=== PATIENT | female | born 1975 | race Hispanic/Latino ===

== ENCOUNTER 2019-02-06 16:24 | Emergency (ER) | payer SELFPAY | END 2019-02-06 17:00 | disposition left against medical advice (07) | LOC: ED 16:24 | DX: F41.9 Anxiety disorder, unspecified (principal); Z53.21 Procedure and treatment not carried out due to patient leaving prior to being seen by health care provider ==

== ENCOUNTER 2019-04-03 10:57 | Inpatient (IN) | payer OTHER ==
[2019-04-03] MEDS ORDERED: SODIUM CHLORIDE 0.9% 1000 ML 1,000 ML IV ONE ×4 (11:07→22:32)
[2019-04-03] MEDS ORDERED: cefTRIAXone/NS 2 GM/100 ML 2 GM/100 ML BAG IV SCH (11:10)
[2019-04-03 11:46] LABS: Hemoglobin 16.8 gm/dl (11.8-15.2); Mean Corpuscular HGB Conc 35 % (32-34); Mean Corpuscular Volume 81 fl (84-94); Platelet Count 117 K/mm3 (140-440); Red Cell Distribution Width 14.7 % (13.2-15.2)
[2019-04-03 11:50] LABS: Amphetamine Screen,Urine PRESUMPTIVE NEGATIVE; Benzodiazepines Screen,Urine PRESUMPTIVE NEGATIVE; Cannabinoid Screen,Urine PRESUMPTIVE NEGATIVE; Cocaine Screen,Urine PRESUMPTIVE NEGATIVE; Methadone Screen,Urine PRESUMPTIVE NEGATIVE; Opiate Screen,Urine PRESUMPTIVE NEGATIVE
[2019-04-03 11:52] LABS: Bacteria,Urine 1+ /HPF (Negative); Bilirubin,Urine MOD (Negative); Blood,Urine NEG (Negative); Color,Urine Amber (Yellow); Hyaline Casts,Urine 9 /LPF; Mucus,Urine 3+ /HPF
[2019-04-03 12:06] LABS: Alanine Aminotransferase 28 units/L (7-56); Albumin 3.7 g/dL (3.9-5); BUN/Creatinine Ratio 20; Blood Urea Nitrogen 53 mg/dL (9-20); Calcium 9.6 mg/dL (8.4-10.2); Hemolysis Index 6
[2019-04-03 12:10] LABS: Ictotest,Urine Positive (Negative)
--- NOTE | 2019-04-03 12:10 | XRay Report ---
CHEST 1 VIEW INDICATION: altered mental status. COMPARISON: None. FINDINGS: Support devices: None. Heart: Within normal limits. Lungs/Pleura: No acute air space or interstitial disease. Additional findings: None. IMPRESSION: 1. No acute findings. Signer Name: Wilmer Moon MD Signed: 04/03/2019 12:06 PM Workstation Name: [id number]
[2019-04-03 12:23] LABS: Basophils % (Manual) 0 % (0.0-1.8); Platelet Estimate Consistent w Auto; RBC Morphology Normal; Total Cells Counted 100
--- NOTE | 2019-04-03 14:24 | Cat Scan Report ---
CT head/brain wo con INDICATION: altered mental status. TECHNIQUE: Routine CT head without contrast. All CT scans at this location are performed using CT dos e reduction for ALARA by means of automated exposure control. COMPARISON: None. FINDINGS: BRAIN / INTRACRANIAL CONTENTS: No acute hemorrhage, mass effect, midline shift, or hydrocephalus. No appreciable acute large territorial or lacunar infarct. ORBITS: No significant abnormality of visualized orbits. SINUSES / MASTOIDS: No significant abnormality of visualized sinuses and mastoid air cells. ADDITIONAL FINDINGS: None. IMPRESSION: 1. No acute intracranial abnormality. Signer Name: Priyank Easley MD Signed: 04/03/2019 2:20 PM Workstation Name: [id number]
--- NOTE | 2019-04-03 14:35 | Cat Scan Report ---
CT abdomen pelvis wo con INDICATION: elevated bilirubin. TECHNIQUE: All CT scans at this location are performed using the following dose modulation technique: Automated exposure control. CONTRAST: None. COMPARISON: None available. CT ABDOMEN: The parenchymal organs are unremarkable in appearance. Evaluation of bowel demonstrates f luid-filled stomach, small bowel in: To a lesser degree. Negative for wall thickening or transition z one. No abdominal mass, fluid collection or localized inflammation. CT PELVIS: Negative for mass, fluid or inflammation. The bladder is decompressed by Lopez catheter. IMPRESSION: Suspect a gastroenteritis-type process. Signer Name: Colby Marc MD Signed: 04/03/2019 2:31 PM Workstation Name: [id number]
[2019-04-03] MEDS ORDERED: LIDOCAINE (2%) 20 MG/1 ML VIAL 20 ML MDV INFILTRATI ONE (14:53)
--- NOTE | 2019-04-03 15:33 | Emergency Department Report ---
ED General Adult HPI - General Chief complaint: Altered Mental Status Stated complaint: BERTA Time Seen by Provider: 04/03/19 11:05 Source: EMS Mode of arrival: Stretcher Limitations: Altered Mental Status, Other - History of Present Illness Initial comments: Patient is a 44-year-old male who is presenting with altered mental status. Patient is a prisoner and was found on his cell poorly responsive. Patient was transported and given Narcan prior to arrival with no effect. Patient showing this minimal response to sternal rub where he does localize to pain otherwise the patient is just moaning and was not responding to any verbal stimuli. Patient was hypotensive and hypothermic prior to arrival. No known medical problems have been relayed to us Severity scale (0 -10): 0 - Related Data Allergies Allergy/AdvReac Type Severity Reaction Status Date / Time diphenhydramine Allergy Unknown Verified 02/06/19 16:32 [From Benadryl] lithium Allergy Unknown Verified 02/06/19 16:33 Sulfa (Sulfonamide Allergy Nausea Verified 02/06/19 16:32 Antibiotics) ED Review of Systems ROS: Stated complaint: BERTA Other details as noted in HPI Comment: All other systems reviewed and negative ED Past Medical Hx - Past Medical History Previous Medical History?: Yes Hx Psychiatric Treatment: Yes - Surgical History Past Surgical History?: No - Social History Smoking Status: Current Every Day Smoker Substance Use Type: None ED Physical Exam - General Limitations: Altered Mental Status, Other General appearance: obtunded - Head Head exam: Present: atraumatic, normocephalic - Eye Eye exam: Present: normal appearance, PERRL, EOMI - ENT ENT exam: Present: mucous membranes moist - Neck Neck exam: Present: normal inspection - Respiratory Respiratory exam: Present: normal lung sounds bilaterally. Absent: respiratory distress, wheezes, rales, rhonchi - Cardiovascular Cardiovascular Exam: Present: regular rate, normal rhythm. Absent: systolic murmur, diastolic murmur, rubs, gallop - GI/Abdominal GI/Abdominal exam: Present: soft, normal bowel sounds, other (Bruising to the right abdomen which is mild). Absent: distended, tenderness, guarding, rebound - Rectal Rectal exam: Present: deferred - Extremities Exam Extremities exam: Present: normal inspection - Back Exam Back exam: Present: normal inspection - Neurological Exam Neurological exam: Present: altered, other (Patient is moving all extremities but is not responding to command) - Skin Skin exam: Present: warm, dry, intact, normal color. Absent: rash ED Course Vital Signs 04/03/19 04/03/19 04/03/19 11:12 11:16 11:30 Temperature Pulse Rate 83 78 Respiratory 34 H 27 H Rate Blood Pressure 91/40 91/40 65/37 Blood Pressure [Left] O2 Sat by Pulse 95 97 96 Oximetry 04/03/19 04/03/19 04/03/19 11:31 11:38 11:46 Temperature 91 F L Pulse Rate 88 72 80 Respiratory 20 25 H 29 H Rate Blood Pressure 91/40 108/83 Blood Pressure 108/83 [Left] O2 Sat by Pulse 97 95 92 Oximetry 04/03/19 04/03/19 04/03/19 12:00 12:16 12:30 Temperature Pulse Rate 78 77 83 Respiratory 24 26 H 28 H Rate Blood Pressure 96/78 115/33 47/19 Blood Pressure [Left] O2 Sat by Pulse 99 100 98 Oximetry 04/03/19 04/03/19 04/03/19 12:46 13:00 13:16 Temperature Pulse Rate 82 80 87 Respiratory 25 H 23 28 H Rate Blood Pressure 102/57 93/58 75/46 Blood Pressure [Left] O2 Sat by Pulse 99 98 96 Oximetry 04/03/19 04/03/19 04/03/19 13:55 14:00 14:16 Temperature Pulse Rate 87 82 90 Respiratory 18 22 20 Rate Blood Pressure 79/50 79/50 67/40 Blood Pressure [Left] O2 Sat by Pulse 97 97 96 Oximetry 04/03/19 04/03/19 04/03/19 14:30 14:45 15:00 Temperature Pulse Rate 85 85 83 Respiratory 20 20 35 H Rate Blood Pressure 84/46 90/51 90/51 Blood Pressure [Left] O2 Sat by Pulse 98 98 97 Oximetry 04/03/19 15:16 Temperature Pulse Rate 84 Respiratory 18 Rate Blood Pressure 60/37 Blood Pressure [Left] O2 Sat by Pulse 96 Oximetry ED Medical Decision Making - Lab Data Result diagrams: 04/03/19 11:22 04/03/19 11:22 Lab Results 04/03/19 04/03/19 04/03/19 Range/Units 11:09 11:09 11:22 WBC 8.0 (4.5-11.0) K/mm3 RBC 5.90 H (3.65-5.03) M/mm3 Hgb 16.8 H (11.8-15.2) gm/dl Hct 48.0 H (35.5-45.6) % MCV 81 L (84-94) fl MCH 28 (28-32) pg MCHC 35 H (32-34) % RDW 14.7 (13.2-15.2) % Plt Count 117 L (140-440) K/mm3 Add Manual Diff Complete Total Counted 100 Seg Neuts % (Manual) 7.0 L (40.0-70.0) % Band Neutrophils % 75.0 % Lymphocytes % (Manual) 14.0 (13.4-35.0) % Reactive Lymphs % (Man) 0 % Monocytes % (Manual) 3.0 (0.0-7.3) % Eosinophils % (Manual) 1.0 (0.0-4.3) % Basophils % (Manual) 0 (0.0-1.8) % Metamyelocytes % 0 % Myelocytes % 0 % Promyelocytes % 0 % Blast Cells % 0 % Nucleated RBC % Not Reportable Seg Neutrophils # Man 0.6 L (1.8-7.7) K/mm3 Band Neutrophils # 6.0 K/mm3 Lymphocytes # (Manual) 1.1 L (1.2-5.4) K/mm3 Abs React Lymphs (Man) 0.0 K/mm3 Monocytes # (Manual) 0.2 (0.0-0.8) K/mm3 Eosinophils # (Manual) 0.1 (0.0-0.4) K/mm3 Basophils # (Manual) 0.0 (0.0-0.1) K/mm3 Metamyelocytes # 0.0 K/mm3 Myelocytes # 0.0 K/mm3 Promyelocytes # 0.0 K/mm3 Blast Cells # 0.0 K/mm3 WBC Morphology Not Reportable Hypersegmented Neuts Not Reportable Hyposegmented Neuts Not Reportable Hypogranular Neuts Not Reportable Smudge Cells Not Reportable Toxic Granulation Not Reportable Toxic Vacuolation Not Reportable Dohle Bodies Not Reportable Pelger-Huet Anomaly Not Reportable Shayy Rods Not Reportable Platelet Estimate Consistent w auto Clumped Platelets Not Reportable Plt Clumps, EDTA Not Reportable Large Platelets Not Reportable Giant Platelets Not Reportable Platelet Satelliting Not Reportable Plt Morphology Comment Not Reportable RBC Morphology Normal Dimorphic RBCs Not Reportable Polychromasia Not Reportable Hypochromasia Not Reportable Poikilocytosis Not Reportable Anisocytosis Not Reportable Microcytosis Not Reportable Macrocytosis Not Reportable Spherocytes Not Reportable Pappenheimer Bodies Not Reportable Sickle Cells Not Reportable Target Cells Not Reportable Tear Drop Cells Not Reportable Ovalocytes Not Reportable Helmet Cells Not Reportable [place] Bodies Not Reportable [place] Rings Not Reportable [place] Cells Not Reportable Bite Cells Not Reportable Crenated Cell Not Reportable Elliptocytes Not Reportable Acanthocytes (Spur) Not Reportable Rouleaux Not Reportable Hemoglobin C Crystals Not Reportable Schistocytes Not Reportable Malaria parasites Not Reportable Ric Bodies Not Reportable Hem Pathologist Commnt No Sodium (137-145) mmol/L Potassium (3.6-5.0) mmol/L Chloride (98-107) mmol/L Carbon Dioxide (22-30) mmol/L Anion Gap mmol/L BUN (9-20) mg/dL Creatinine (0.8-1.5) mg/dL Estimated GFR ml/min BUN/Creatinine Ratio % Glucose (75-100) mg/dL Lactic Acid (0.7-2.0) mmol/L Calcium (8.4-10.2) mg/dL Total Bilirubin (0.1-1.2) mg/dL AST (5-40) units/L ALT (7-56) units/L Alkaline Phosphatase (35-129) units/L Total Creatine Kinase (55-170) units/L Troponin T (0.00-0.029) ng/mL Total Protein (6.3-8.2) g/dL Albumin (3.9-5) g/dL Albumin/Globulin Ratio % Urine Color [place] (Yellow) Urine Turbidity Cloudy (Clear) Urine pH 5.0 (5.0-7.0) Ur Specific [place] 1.027 (1.003-1.030) Urine Protein 30 mg/dl (Negative) mg/dL Urine Glucose (UA) Neg (Negative) mg/dL Urine Ketones Neg (Negative) mg/dL Urine Blood Neg (Negative) Urine Nitrite Neg (Negative) Ur Reducing Substances Not Reportable Urine Bilirubin Mod (Negative) Urine Ictotest Positive (Negative) Urine Urobilinogen 4.0 (<2.0) mg/dL Ur Leukocyte Esterase Neg (Negative) Urine WBC (Auto) 15.0 H (0.0-6.0) /HPF Urine RBC (Auto) 13.0 (0.0-6.0) /HPF U Epithel Cells (Auto) 1.0 (0-13.0) /HPF Urine Bacteria (Auto) 1+ (Negative) /HPF Hyaline Casts 9 /LPF Urine Mucus 3+ /HPF Urine Opiates Screen Presumptive negative Urine Methadone Screen Presumptive negative Ur Barbiturates Screen Presumptive negative Ur Phencyclidine Scrn Presumptive negative Ur Amphetamines Screen Presumptive negative U Benzodiazepines Scrn Presumptive negative Urine Cocaine Screen Presumptive negative U Marijuana (THC) Screen Presumptive negative Drugs of Abuse Note Disclamer Plasma/Serum Alcohol (0-0.07) % 04/03/19 04/03/19 04/03/19 Range/Units 11:22 11:22 11:22 WBC (4.5-11.0) K/mm3 RBC (3.65-5.03) M/mm3 Hgb (11.8-15.2) gm/dl Hct (35.5-45.6) % MCV (84-94) fl MCH (28-32) pg MCHC (32-34) % RDW (13.2-15.2) % Plt Count (140-440) K/mm3 Add Manual Diff Total Counted Seg Neuts % (Manual) (40.0-70.0) % Band Neutrophils % % Lymphocytes % (Manual) (13.4-35.0) % Reactive Lymphs % (Man) % Monocytes % (Manual) (0.0-7.3) % Eosinophils % (Manual) (0.0-4.3) % Basophils % (Manual) (0.0-1.8) % Metamyelocytes % % Myelocytes % % Promyelocytes % % Blast Cells % % Nucleated RBC % Seg Neutrophils # Man (1.8-7.7) K/mm3 Band Neutrophils # K/mm3 Lymphocytes # (Manual) (1.2-5.4) K/mm3 Abs React Lymphs (Man) K/mm3 Monocytes # (Manual) (0.0-0.8) K/mm3 Eosinophils # (Manual) (0.0-0.4) K/mm3 Basophils # (Manual) (0.0-0.1) K/mm3 Metamyelocytes # K/mm3 Myelocytes # K/mm3 Promyelocytes # K/mm3 Blast Cells # K/mm3 WBC Morphology Hypersegmented Neuts Hyposegmented Neuts Hypogranular Neuts Smudge Cells Toxic Granulation Toxic Vacuolation Dohle Bodies Pelger-Huet Anomaly Shayy Rods Platelet Estimate Clumped Platelets Plt Clumps, EDTA Large Platelets Giant Platelets Platelet Satelliting Plt Morphology Comment RBC Morphology Dimorphic RBCs Polychromasia Hypochromasia Poikilocytosis Anisocytosis Microcytosis Macrocytosis Spherocytes Pappenheimer Bodies Sickle Cells Target Cells Tear Drop Cells Ovalocytes Helmet Cells [place] Bodies [place] Rings [place] Cells Bite Cells Crenated Cell Elliptocytes Acanthocytes (Spur) Rouleaux Hemoglobin C Crystals Schistocytes Malaria parasites Ric Bodies Hem Pathologist Commnt Sodium 146 H (137-145) mmol/L Potassium 4.4 (3.6-5.0) mmol/L Chloride 100.0 (98-107) mmol/L Carbon Dioxide 15 L (22-30) mmol/L Anion Gap 35 mmol/L BUN 53 H (9-20) mg/dL Creatinine 2.7 H (0.8-1.5) mg/dL Estimated GFR 26 ml/min BUN/Creatinine Ratio 20 % Glucose 179 H (75-100) mg/dL Lactic Acid 8.00 H* (0.7-2.0) mmol/L Calcium 9.6 (8.4-10.2) mg/dL Total Bilirubin 4.00 H (0.1-1.2) mg/dL AST 17 (5-40) units/L ALT 28 (7-56) units/L Alkaline Phosphatase 102 (35-129) units/L Total Creatine Kinase 43 L (55-170) units/L Troponin T < 0.010 (0.00-0.029) ng/mL Total Protein 7.8 (6.3-8.2) g/dL Albumin 3.7 L (3.9-5) g/dL Albumin/Globulin Ratio 0.9 % Urine Color (Yellow) Urine Turbidity (Clear) Urine pH (5.0-7.0) Ur Specific [place] (1.003-1.030) Urine Protein (Negative) mg/dL Urine Glucose (UA) (Negative) mg/dL Urine Ketones (Negative) mg/dL Urine Blood (Negative) Urine Nitrite (Negative) Ur Reducing Substances Urine Bilirubin (Negative) Urine Ictotest (Negative) Urine Urobilinogen (<2.0) mg/dL Ur Leukocyte Esterase (Negative) Urine WBC (Auto) (0.0-6.0) /HPF Urine RBC (Auto) (0.0-6.0) /HPF U Epithel Cells (Auto) (0-13.0) /HPF Urine Bacteria (Auto) (Negative) /HPF Hyaline Casts /LPF Urine Mucus /HPF Urine Opiates Screen Urine Methadone Screen Ur Barbiturates Screen Ur Phencyclidine Scrn Ur Amphetamines Screen U Benzodiazepines Scrn Urine Cocaine Screen U Marijuana (THC) Screen Drugs of Abuse Note Plasma/Serum Alcohol < 0.01 (0-0.07) % - EKG Data -: EKG Interpreted by Ct - EKG Data 04/03/19 15:32 EKG shows sinus rhythm with a rate of 76. [place] is normal intervals show prolonged QT. No ST segment elevations or depressions. - Radiology Data CHEST 1 VIEW INDICATION: altered mental status. COMPARISON: None. FINDINGS: Support devices: None. Heart: Within normal limits. Lungs/Pleura: No acute air space or interstitial disease. Additional findings: None. IMPRESSION: 1. No acute findings. Signer Name: Wilmer Moon MD Signed: 04/03/2019 12:06 PM Workstation Name: [id number] CT abdomen pelvis wo con INDICATION: elevated bilirubin. TECHNIQUE: All CT scans at this location are performed using the following dose modulation technique: Automated exposure control. CONTRAST: None. COMPARISON: None available. CT ABDOMEN: The parenchymal organs are unremarkable in appearance. Evaluation of bowel demonstrates fluid-filled stomach, small bowel in: To a lesser degree. Negative for wall thi ckening or transition zone. No abdominal mass, fluid collection or localized inflammation. CT PELVIS: Negative for mass, fluid or inflammation. The bladder is decompressed by Lopez catheter. IMPRESSION: Suspect a gastroenteritis-type process. Signer Name: Colby Marc MD Signed: 04/03/2019 2:31 PM Workstation Name: [id number] Transcribed By: ES Dictated By: Colby Marc MD Electronically Authenticated By: Colby Marc MD Signed Date/Time: 04/03/[address] head/brain wo con INDICATION: altered mental status. TECHNIQUE: Routine CT head without contrast. All CT scans at this location are performed using CT dose reduction for ALARA by means of automated exposure control. COMPARISON: None. FINDINGS: BRAIN / INTRACRANIAL CONTENTS: No acute hemorrhage, mass effect, midline shift, or hydrocephalus. No appreciable acute large territorial or lacunar infarct. ORBITS: No significant abnormality of visualized orbits. SINUSES / MASTOIDS: No significant abnormality of visualized sinuses and mastoid air cells. ADDITIONAL FINDINGS: None. IMPRESSION: 1. No acute intracranial abnormality. Signer Name: Priyank Easley MD Signed: 04/03/2019 2:20 PM - Medical Decision Making Patient is a 44-year-old male who is presenting with altered mental status hypotension and hypothermia. Patient was placed on a Evans hugger no on arrival. His temperatures and is continued to be monitored and is improving. Regard to patient's mental status patient did have a intact gag reflex and is maintaining his oxygenation with nonrebreather. I have elected to not intubate the patient at this time. Patient is 100% with his O2 sat. Patient is given multiple fluid boluses to improve the patient's hypo-tension. Patient blood pressure would correct occasionally and then drop. Elected to place a I/O in the patient's left tibia. Central line was attempted in the right IJ. There was issues with passing the guidewire secondary to patient's breathing pattern. Patient will be started on levo fed after failed improvement of his blood pressure with multiple fluid boluses. Patient does not appear to have any source of infection at this time. His white count is within normal limits he is afebrile. There is no urinary tract infection or pneumonia. Patient does have evidence of renal failure with metabolic acidosis. Patient will be admitted to the hospitalist service. Was elevated bilirubin however CT of the abdomen shows only gastroenteritis type pattern. Critical Care Time: Yes (30) Critical care attestation.: If time is entered above; I have spent that time in minutes in the direct care of this critically ill patient, excluding procedure time. ED Disposition Clinical Impression: Acute encephalopathy, Hyperbilirubinemia Renal failure Qualifiers: Renal failure chronicity: acute Acute renal failure type: unspecified Qualified Code(s): N17.9 - Acute kidney failure, unspecified Hypotension Qualifiers: Hypotension type: unspecified hypotension type Qualified Code(s): I95.9 - Hypotension, unspecified Hypothermia Qualifiers: Encounter type: initial encounter Qualified Code(s): T68.XXXA - Hypothermia, initial encounter Disposition: OP ADMIT IP TO THIS HOSP Is pt being admited?: Yes Does the pt Need Aspirin: No Condition: Stable Time of Disposition: 15:39
[2019-04-03] MEDS: NORepinephrine/NS 4 MG-250 ML 4 MG/250 ML BAG IV SCH ×2 (16:07→22:20)
[2019-04-03] MEDS ORDERED: ALBUTEROL 2.5 MG/3 ML NEBU IH PRN (16:37)
[2019-04-03] MEDS ORDERED: SODIUM CHLORIDE 0.9% 1000 ML IV SOLN IV ONE (16:37)
--- NOTE | 2019-04-03 17:00 | History and Physical Report ---
History of Present Illness Chief complaint: Unresponsive History of present illness: 44 YO Male with Nicotine Dependence, Obesity, Obesity Hypoventilation presents to ED for evaluation. Patient is currently incarcerated. Patient is stuporous/comatose at time of my exam and is unable to provide history. Patient history is provided by EMS staff, ED staff, and senior living center staff. As per staff the patient was found to be unresponsive this morning. EMS was notified and upon arrival the patient was treated with Narcan upon arrival with no effect. Patient transported to [facility] for further care and evaluation. Patient seen and evaluated in the emergency department. Lab and imaging studies reviewed. Patient found to have sepsis, acute kidney injury, metabolic acidosis, and toxic encephalopathy with concomitant volume depletion. Patient admitted to intensive care unit and initiated on sepsis protocol. Patient also found to have acute hypoxemic respiratory distress and is placed on supplemental oxygen. Patient has a positive gag reflex and is able to protect his airway at this time. No other history obtainable. Patient found to be in septic shock with systolic blood pressure in the 70s and is initiated on IV pressor support with concomitant IV fluid resuscitation therapy in accordance with sepsis protocol. No further history obtainable. No prior admission for review. No medication listed at time of admission for reconciliation. Critical care time: 95 minutes. Past History Past Medical History: other (See HPI) Past Surgical History: No surgical history, Other (Unobtainable) Social history: single, smoking, other (Currently incarcerated) Family history: no significant family history (Reviewed/unobtainable) Medications and Allergies Allergies Allergy/AdvReac Type Severity Reaction Status Date / Time diphenhydramine Allergy Unknown Verified 02/06/19 16:32 [From Benadryl] lithium Allergy Unknown Verified 02/06/19 16:33 Sulfa (Sulfonamide Allergy Nausea Verified 02/06/19 16:32 Antibiotics) Active Meds: Active Medications Albuterol (Proventil) 2.5 mg IH Q3HRT PRN PRN Reason: Shortness Of Breath Ceftriaxone Sodium (Rocephin/Ns 2 Gm/100 Ml) 2 gm in 100 mls @ 200 mls/hr IV Q24HR DUSTY; Protocol Last Admin: 04/03/19 12:17 Dose: 200 mls/hr Documented by: Norepinephrine (Levophed Drip 4 Mg/Ns 250 Ml) 4 mg in 250 mls @ 7.5 mls/hr IV TITR DUSTY; Protocol Last Titration: 04/03/19 16:59 Dose: 6 mcg/min, 22.5 mls/hr Documented by: Sodium Chloride (Nacl 0.9% 1000 Ml) 1,000 mls @ 999 mls/hr IV BOLUS ONE Stop: 04/03/19 17:12 Last Admin: 04/03/19 16:36 Dose: 999 mls/hr Documented by: Sodium Chloride (Sodium Chloride Flush Syringe 10 Ml) 10 ml IV BID DUSTY Sodium Chloride (Sodium Chloride Flush Syringe 10 Ml) 10 ml IV PRN PRN PRN Reason: LINE FLUSH Review of Systems ROS unobtainable: due to mental status Exam - Constitutional Vitals: Temp Pulse Resp BP Pulse Ox 91 F L 84 18 60/37 96 04/03/19 11:31 04/03/19 15:16 04/03/19 15:16 04/03/19 15:16 04/03/19 15:16 General appearance: Present: severe distress - EENT Eyes: Present: miosis ENT: hearing decreased - Neck Neck: Present: supple, normal ROM - Respiratory Respiratory effort: labored, accessory muscle use Respiratory: bilateral: diminished, rhonchi - Cardiovascular Rhythm: other (Tachycardia) Heart Sounds: Present: S1 & S2. Absent: rub, click - Extremities Extremities: pulses symmetrical, No edema Peripheral Pulses: abnormal (Capillary refill greater than 3.5 seconds) - Abdominal General gastrointestinal: Present: soft, non-tender, non-distended, normal bowel sounds Male genitourinary: Present: normal - Integumentary Integumentary: Present: clear, dry, clammy, decreased turgor - Musculoskeletal Musculoskeletal: generalized weakness - Psychiatric Psychiatric: no appropriate mood/affect, no intact judgment & insight, no memory intact - Neurologic Neurologic: CNII-XII intact, no focal deficits, moves all extremities, no gait normal Results - Labs CBC & Chem 7: 04/03/19 11:22 04/03/19 11:22 Labs: Abnormal lab results 04/03/19 04/03/19 04/03/19 Range/Units 11:09 11:22 11:22 RBC 5.90 H (3.65-5.03) M/mm3 Hgb 16.8 H (11.8-15.2) gm/dl Hct 48.0 H (35.5-45.6) % MCV 81 L (84-94) fl MCHC 35 H (32-34) % Plt Count 117 L (140-440) K/mm3 Seg Neuts % (Manual) 7.0 L (40.0-70.0) % Seg Neutrophils # Man 0.6 L (1.8-7.7) K/mm3 Lymphocytes # (Manual) 1.1 L (1.2-5.4) K/mm3 Sodium 146 H (137-145) mmol/L Carbon Dioxide 15 L (22-30) mmol/L BUN 53 H (9-20) mg/dL Creatinine 2.7 H (0.8-1.5) mg/dL Glucose 179 H (75-100) mg/dL Lactic Acid (0.7-2.0) mmol/L Total Bilirubin 4.00 H (0.1-1.2) mg/dL Total Creatine Kinase 43 L (55-170) units/L Albumin 3.7 L (3.9-5) g/dL Urine WBC (Auto) 15.0 H (0.0-6.0) /HPF 04/03/19 04/03/19 Range/Units 11:22 15:31 RBC (3.65-5.03) M/mm3 Hgb (11.8-15.2) gm/dl Hct (35.5-45.6) % MCV (84-94) fl MCHC (32-34) % Plt Count (140-440) K/mm3 Seg Neuts % (Manual) (40.0-70.0) % Seg Neutrophils # Man (1.8-7.7) K/mm3 Lymphocytes # (Manual) (1.2-5.4) K/mm3 Sodium (137-145) mmol/L Carbon Dioxide (22-30) mmol/L BUN (9-20) mg/dL Creatinine (0.8-1.5) mg/dL Glucose (75-100) mg/dL Lactic Acid 8.00 H* 4.50 H* (0.7-2.0) mmol/L Total Bilirubin (0.1-1.2) mg/dL Total Creatine Kinase (55-170) units/L Albumin (3.9-5) g/dL Urine WBC (Auto) (0.0-6.0) /HPF Assessment and Plan - Patient Problems (1) Septic shock Current Visit: Yes Status: Acute Plan to address problem: Sepsis protocol: Admit to ICU, IV fluid resuscitation therapy, IV antibiotic therapy, thyroid panel, CT abdomen and pelvis, CBC, CMP, IV fluid resuscitation therapy, monitor urine output every shift, maintain mean arterial pressure greater than than or equal to 65, IV pressor support, chest x-ray. Critical care team consulted in ED. The high probability of a clinically significant, sudden or life threatening deterioration of the [neuro, respiratory, pulmonary, endocrine] system(s) required my full and direct attention, intervention and personal management. The aggregate critical care time was [95] minutes. This time is in addition to time spent performing reported procedures but includes the following: [x] Data Review and interpretation [x] Patient assessment and monitoring of vital signs [x] Documentation [x] Medication orders and management (2) Toxic encephalopathy Current Visit: Yes Status: Acute Plan to address problem: CT head, neuro check, treat sepsis, CBC, CMP, thyroid panel, aspiration precautions, seizures precautions, supportive care. (3) Acute kidney injury Current Visit: Yes Status: Acute Plan to address problem: IV fluid resuscitation therapy, monitor urine output every shift, urine electrolytes. (4) Hypernatremia Current Visit: Yes Status: Acute Plan to address problem: IV fluid resuscitation therapy, BMP, repeat BMP in a.m. (5) Metabolic acidosis Current Visit: Yes Status: Acute Plan to address problem: IV fluid resuscitation therapy, BMP now, repeat BMP in a.m., treat septic shock: IV bicarbonate therapy. (6) DVT prophylaxis Current Visit: Yes Status: Acute Plan to address problem: SCD to bilateral lower extremities while in bed, prophylactic heparin.
[2019-04-03 17:45] LABS: Free T4 (Free Thyroxine) 0.99 ng/dL (0.76-1.46)
[2019-04-03 17:57] LABS: ABG Base Excess -10.3 mmol/L (-2.0-3.0); ABG HCO3 13.9 mmol/L (20.0-26.0); ABG Methemoglobin 0.5 % (0.0-1.5); ABG Oxygen Saturation 97.4 % (95.0-99.0); ABG PCO2 25.9 mm Hg; ABG PH 7.347 pH Units (7.350-7.450); ABG PO2 97.6 mm Hg (80.0-90.0)
--- NOTE | 2019-04-03 17:57 | Procedure Note ---
Date of procedure: 04/03/19 Pre-op diagnosis: Sepsis Post-op diagnosis: same Procedure: Right femoral triple-lumen catheter insertion under ultrasound guidance After informed consent was obtained a timeout was taken to identify the correct patient, procedure and correct operative site. The patient was draped prepped and draped in the usual sterile fashion. An ultrasound was used to localize the right femoral vein without difficulty. Local anesthesia was obtained with 1% lidocaine. The Seldinger technique was utilized to access the right femoral vein without difficulty. Under ultrasound guidance a seeker needle was used to access the right femoral vein under ultrasound guidance. A guidewire was then advanced through the seeker needle into the right femoral vein without difficulty and the seeker needle was subsequently removed and discarded. A scalpel was used to incise the skin and a dilator was used to dilate a tract into the right femoral vein. The dilator was then removed over the guidewire and discarded and a triple-lumen catheter advanced into the right femoral vein over the guidewire. The guidewire was then removed and discarded. All 3 triple-lumen ports flush and draw with ease. The triple-lumen catheter was sewn in place and a Biopatch was placed at the insertion site. Complications none. Estimated blood loss minimal. Specimens none. Anesthesia: local Surgeon: JOURDAN CIFUENTES Estimated blood loss: minimal Pathology: none Condition: critical Disposition: ICU
[2019-04-03] MEDS ORDERED: SODIUM CHLORIDE 0.9% 1000 ML 2,000 ML ONE ×2 (18:30→22:32)
[2019-04-03] MEDS ORDERED: NORepinephrine/NS 4 MG-250 ML 4 MG/250 ML BAG IV ONE (21:05)
[2019-04-03] MEDS ORDERED: HEPARIN 5,000 UNIT/1 ML VIAL SUB-Q SCH (22:00)
[2019-04-03] MEDS ORDERED: LIP THERAPY VASELINE TP PRN (22:51)
[2019-04-03] MEDS ORDERED: MINERAL OIL/PETROLATUM, WHITE OPHTH OINT 3.5 GM OU PRN (22:51)
--- NOTE | 2019-04-03 23:19 | Event Note ---
Date: 04/03/19 Called to bedside. Patient is hypotensive maxed out on Levophed drip, unresponsive with labored breathing on nonrebreather mask with saturations of 90%. Patient intubated by ED physician for airway protection. Patient given 1 L fluid bolus and ordered vasopressin to help maintain map of 65.
--- NOTE | 2019-04-03 23:25 | XRay Report ---
CHEST 1 VIEW 04/03/2019 11:03 PM INDICATION / CLINICAL INFORMATION: ETT placement. COMPARISON: One view of the chest from earlier today. FINDINGS: SUPPORT DEVICES: An ET tube has been placed that is located 4.5 cm above the deisi. HEART / MEDIASTINUM: No significant abnormality. LUNGS / PLEURA: There is a small left pleural effusion with associated atelectasis. The lungs are oth erwise clear. No pneumothorax. ADDITIONAL FINDINGS: No significant additional findings. IMPRESSION: 1. Interval ET tube placement as above. 2. Small left pleural effusion. Signer Name: Masoud García MD Signed: 04/03/2019 11:20 PM Workstation Name: [id number]
--- NOTE | 2019-04-03 23:50 | Event Note ---
Date: 04/03/19 Called to patient's room by Dr. Prince, hospitalist, for intubation. Patient is altered, there is concern that he is unable to protect his airway. Patient appears to be obtunded. The patient was preoxygenated fully. RSI medications were given, etomidate 20 mg, succinylcholine 200 mg. Patient was then intubated with a MAC 4 using an 8.0 ET tube. There was positive color change on CO2 detector, positive condensation in the tube, and positive breath sounds auscultated. Chest x-ray shows adequate position of the ET tube.
[2019-04-04 00:26] LABS: ABG HCO3 14.3 mmol/L (20.0-26.0); ABG Methemoglobin 0.6 % (0.0-1.5); ABG Oxygen Saturation 98.8 % (95.0-99.0); ABG PCO2 37.6 mm Hg; ABG PO2 164.3 mm Hg (80.0-90.0)
[2019-04-04 00:36] LABS: ABG PH 7.197 pH Units (7.350-7.450)
[2019-04-04] MEDS ORDERED: SODIUM CHLORIDE 0.9% 1000 ML 1,000 ML IV SCH (01:47)
[2019-04-04] MEDS ORDERED: SODIUM BICARB 8.4% 50 MEQ/50 ML SYRINGE IV ONE ×2 (02:00→02:02)
[2019-04-04] MEDS: SODIUM BICARBONATE 150 MEQ in DEXTROSE 5% IN WATER 1,000 ML IV SCH ×4 (03:08→21:42)
[2019-04-04] MEDS: VASOPRESSIN 20 UNIT in SODIUM CHLORIDE 0.9% 100 ML IV SCH ×3 (03:18→19:52)
[2019-04-04 05:21] LABS: Hematocrit 35.7 % (35.5-45.6); Hemoglobin 12.3 gm/dl (11.8-15.2); Mean Corpuscular HGB Conc 35 % (32-34); Mean Corpuscular Volume 84 fl (84-94); Red Blood Count 4.27 M/mm3 (3.65-5.03); Red Cell Distribution Width 14.6 % (13.2-15.2)
[2019-04-04 05:27] LABS: Platelet Count 87 K/mm3 (140-440)
[2019-04-04 06:10] LABS: Calcium 6.6 mg/dL (8.4-10.2)
[2019-04-04 06:11] LABS: ABG Base Excess -9.5 mmol/L (-2.0-3.0); ABG HCO3 16.1 mmol/L (20.0-26.0); ABG Methemoglobin 0.6 % (0.0-1.5); ABG Oxygen Saturation 99.4 % (95.0-99.0); ABG PCO2 34.4 mm Hg; ABG PH 7.289 pH Units (7.350-7.450); ABG PO2 246.4 mm Hg (80.0-90.0)
[2019-04-04 06:35] LABS: Band Neutrophils # (Manual) 3.7 K/mm3; Basophils % (Manual) 0 % (0.0-1.8); Total Cells Counted 100
[2019-04-04 06:39] LABS: Platelet Estimate Consistent w Auto; RBC Morphology Normal
--- NOTE | 2019-04-04 08:27 | XRay Report ---
CHEST 1 VIEW INDICATION: follow up respiratory failure. COMPARISON: 04/03/2019 FINDINGS: Support devices: Stable satisfactory device positioning. Endotracheal tube is satisfactory. Heart: Within normal limits. Pulmonary vasculature: Normal. Lungs/Pleura: Left lower lobe opacification with silhouetting of the left hemidiaphragm and opacifica tion of the left costophrenic angle. No pneumothorax. Additional findings: None. IMPRESSION: 1. Left lower lobe airspace disease/atelectasis and small pleural effusion without change. Signer Name: Wilmer Moon MD Signed: 04/04/2019 8:22 AM Workstation Name: [id number]
[2019-04-04] MEDS: NORepinephrine/NS 4 MG-250 ML 4 MG/250 ML BAG IV SCH ×6 (08:40→22:34)
--- NOTE | 2019-04-04 09:37 | Consultation ---
History of Present Illness Consult date: 04/04/19 Requesting physician: SHARLA LAMB Reason for consult: other (Altered Mental status. Hypotension) History of present illness: 44 y/o male prisoner who has been incarcerated for at least 3 months admitted after being found poor responsive in his cell. Per the guard at the bed, his mental state has always been "off" since arrival to the retirement. Patient was intubated as he was deemed not able to protect his airway. He is currently maxed on 2 pressors with a lactic acid of 4. He is unresponsive on no sedation. Past History Past Medical History: other (unable to obtain) Past Surgical History: Other (unable to obtain) Social history: other (Currently incarcerated) Family history: other (unable to obtain) Medications and Allergies Allergies Allergy/AdvReac Type Severity Reaction Status Date / Time diphenhydramine Allergy Unknown Verified 02/06/19 16:32 [From Benadryl] lithium Allergy Unknown Verified 02/06/19 16:33 Sulfa (Sulfonamide Allergy Nausea Verified 02/06/19 16:32 Antibiotics) Active Meds: Active Medications Albuterol (Proventil) 2.5 mg IH Q3HRT PRN PRN Reason: Shortness Of Breath Heparin Sodium (Porcine) (Heparin) 5,000 unit SUB-Q Q12HR DUSTY Last Admin: 04/04/19 06:51 Dose: 5,000 unit Documented by: Hydrophilic Ointment (Vaseline Lip Therapy) 1 applic TP Q2HR PRN PRN Reason: Dry Lips Ceftriaxone Sodium (Rocephin/Ns 2 Gm/100 Ml) 2 gm in 100 mls @ 200 mls/hr IV Q24HR DUSTY; Protocol Last Admin: 04/03/19 12:17 Dose: 200 mls/hr Documented by: Norepinephrine (Levophed Drip 4 Mg/Ns 250 Ml) 4 mg in 250 mls @ 7.5 mls/hr IV TITR DUSTY; Protocol Last Admin: 04/04/19 08:40 Dose: 30 mcg/min, 112.5 mls/hr Documented by: Vasopressin 20 unit/ Sodium (Chloride) 101 mls @ 9.09 mls/hr IV TITR DUSTY Last Admin: 04/04/19 07:54 Dose: 0.03 units/min, 9.09 mls/hr Documented by: Sodium Chloride (Nacl 0.9% 1000 Ml) 1,000 mls @ 999 mls/hr IV DIRECT DUSTY; Protocol Stop: 04/06/19 02:48 Sodium Bicarbonate 150 meq/ (Dextrose) 1,150 mls @ 200 mls/hr IV DIRECT DUSTY Last Admin: 04/04/19 08:41 Dose: 200 mls/hr Documented by: Multi-Ingred Cream/Lotion/Oil/Oint (Artificial Tears Ophth Oint) 1 applic OU Q4HR PRN PRN Reason: Dry Eye(s) Sodium Chloride (Sodium Chloride Flush Syringe 10 Ml) 10 ml IV BID DUSTY Sodium Chloride (Sodium Chloride Flush Syringe 10 Ml) 10 ml IV PRN PRN PRN Reason: LINE FLUSH Review of Systems ROS unobtainable: due to endotracheal tube, due to mental status Physical Examination Vital signs: Vital Signs BP Pulse Ox 91/40 95 04/03/19 11:12 04/03/19 11:12 General appearance: no acute distress, comatose Eyes: non-icteric ENT: other (orally intubated not on sedation) Effort: normal Ascultation: Bilateral: clear Percussion: Bilateral: not dull Gastrointestinal: normoactive bowel sounds, soft Results - Laboratory Findings CBC and BMP: 04/04/19 05:01 04/04/19 05:01 ABG ABG pH 7.289 pH Units (7.350-7.450) L 04/04/19 05:55 ABG pCO2 34.4 mm Hg 04/04/19 05:55 ABG pO2 246.4 mm Hg (80.0-90.0) H 04/04/19 05:55 ABG O2 Saturation 99.4 % (95.0-99.0) H 04/04/19 05:55 Abnormal lab findings: Abnormal Labs 04/03/19 04/03/19 04/03/19 11:09 11:22 11:22 RBC 5.90 H Hgb 16.8 H Hct 48.0 H MCV 81 L MCHC 35 H Plt Count 117 L Seg Neuts % (Manual) 7.0 L Lymphocytes % (Manual) Seg Neutrophils # Man 0.6 L Lymphocytes # (Manual) 1.1 L ABG pH ABG pO2 ABG HCO3 ABG O2 Saturation ABG Base Excess ABG Hemoglobin Sodium 146 H Chloride Carbon Dioxide 15 L BUN 53 H Creatinine 2.7 H Glucose 179 H Lactic Acid Calcium Total Bilirubin 4.00 H Total Creatine Kinase 43 L Total Protein Albumin 3.7 L Urine WBC (Auto) 15.0 H 04/03/19 04/03/19 04/03/19 11:22 15:31 16:28 RBC Hgb Hct MCV MCHC Plt Count Seg Neuts % (Manual) Lymphocytes % (Manual) Seg Neutrophils # Man Lymphocytes # (Manual) ABG pH ABG pO2 ABG HCO3 ABG O2 Saturation ABG Base Excess ABG Hemoglobin Sodium Chloride Carbon Dioxide BUN Creatinine Glucose Lactic Acid 8.00 H* 4.50 H* 4.80 H* Calcium Total Bilirubin Total Creatine Kinase Total Protein Albumin Urine WBC (Auto) 04/03/19 04/03/19 04/03/19 17:50 19:01 20:57 RBC Hgb Hct MCV MCHC Plt Count Seg Neuts % (Manual) Lymphocytes % (Manual) Seg Neutrophils # Man Lymphocytes # (Manual) ABG pH 7.347 L ABG pO2 97.6 H ABG HCO3 13.9 L ABG O2 Saturation ABG Base Excess -10.3 L ABG Hemoglobin 11.4 L Sodium Chloride Carbon Dioxide BUN Creatinine Glucose Lactic Acid 4.40 H* 4.00 H* Calcium Total Bilirubin Total Creatine Kinase Total Protein Albumin Urine WBC (Auto) 04/03/19 04/04/19 04/04/19 23:55 00:29 05:01 RBC Hgb Hct MCV MCHC 35 H Plt Count 87 L Seg Neuts % (Manual) 6.0 L Lymphocytes % (Manual) 11.0 L Seg Neutrophils # Man 0.3 L Lymphocytes # (Manual) 0.5 L ABG pH 7.197 L* ABG pO2 164.3 H ABG HCO3 14.3 L ABG O2 Saturation ABG Base Excess -13.0 L ABG Hemoglobin 11.6 L Sodium Chloride Carbon Dioxide BUN Creatinine Glucose Lactic Acid 4.20 H* Calcium Total Bilirubin Total Creatine Kinase Total Protein Albumin Urine WBC (Auto) 04/04/19 04/04/19 04/04/19 05:01 05:01 05:55 RBC Hgb Hct MCV MCHC Plt Count Seg Neuts % (Manual) Lymphocytes % (Manual) Seg Neutrophils # Man Lymphocytes # (Manual) ABG pH 7.289 L ABG pO2 246.4 H ABG HCO3 16.1 L ABG O2 Saturation 99.4 H ABG Base Excess -9.5 L ABG Hemoglobin 11.1 L Sodium 152 H Chloride 120.5 H Carbon Dioxide 13 L BUN 51 H Creatinine 2.0 H Glucose 148 H Lactic Acid 4.00 H* Calcium 6.6 L D Total Bilirubin 2.20 H Total Creatine Kinase Total Protein 4.8 L D Albumin 2.0 L Urine WBC (Auto) 04/04/19 07:18 RBC Hgb Hct MCV MCHC Plt Count Seg Neuts % (Manual) Lymphocytes % (Manual) Seg Neutrophils # Man Lymphocytes # (Manual) ABG pH ABG pO2 ABG HCO3 ABG O2 Saturation ABG Base Excess ABG Hemoglobin Sodium Chloride Carbon Dioxide BUN Creatinine Glucose Lactic Acid 4.10 H* Calcium Total Bilirubin Total Creatine Kinase Total Protein Albumin Urine WBC (Auto) - Diagnostic Findings Chest x-ray: image reviewed Assessment and Plan 44 y/o male admitted with altered mental state, unresponsive now on vent, hypotensive for unknown etiology. 1. Normal head CT. Negative UDS. Likely needs LP given hypothermia on admission. Will ask IMS to order for IR 2. Will give more IVF's. Responded to fluids last night. HAd 250 in his bag t his morning. Will give more lactated ringers now 3. Spoke with pharmacy, will increase rocephin to 2 grams IV q12. Will also give a one time dose of vanc. Blood cultures with GPC in clusters. 4. Wean Vasopressors for MAPs greater than 65 5. Suggest renal consult, most likely pre-renal, continue IV hydration as numbers have improved. 6. Overall prognosis is guarded to poor. CCT 31 minutes.
[2019-04-04] MEDS ORDERED: LACTATED RINGERS 1,000 ML IV ONE ×2 (09:48)
[2019-04-04] MEDS ORDERED: ETOMIDATE 20 MG/10 ML INJ IV ONE (09:51)
[2019-04-04] MEDS ORDERED: SUCCINYLCHOLINE CHLORIDE 200 MG/10 ML INJ MDV ONE (09:51)
[2019-04-04] MEDS ORDERED: VANCOMYCIN 2,000 MG in SODIUM CHLORIDE 0.9% 500 ML 500 ML IV ONE (10:30)
[2019-04-04] MEDS: cefTRIAXone/NS 2 GM/100 ML 2 GM/100 ML BAG IV SCH ×2 (10:39→22:35)
[2019-04-04] MEDS ORDERED: FAMOTIDINE 20 MG/2 ML INJ IV SCH (11:00)
--- NOTE | 2019-04-04 11:55 | Progress Note ---
Assessment and Plan Assessment and plan: Patient is a 41 yo man from senior living in custody without known medical history who presented AMS/unresponsive. Patient is a prisoner and was found in his cell poorly responsive. Patient was transported to [facility] ED. He was given Narcan prior to arrival without positive response. Patient was minimally response to sternal rub so he was intubated. Patient was hypotensive and hypothermic prior to arrival. * UA +WBC/neg LE, UDS negative, Cr 2.7, pH 7.197/37.6/164.3/14.3 on fiO2 100% * pCXR IMPRESSION: 1. No acute findings. * CT abd/pelvis without contrast IMPRESSION: Suspect a gastroenteritis-type process. * CT head without contrast: No intracranial abnormality * Blood culture 1/2 bottle growing GP clusters Shock, UA culture negative x 24 hours, +1/2 blood cultures: continue Vasopressors, get Picc line, removal femoral line, treat empiric with IV vancomycin until blood culture finalizes. Hypothermic, workup in process, suspect related to a dying process: treat with kendra hugger as needed Acute hypoxic respiratory failure: continue MV support, CCM following Acute encephalopathy, unspecified, ?senior living trauma vs sepsis full code Disposition: continue inpatient care, too hemodynamically unstable for LP or any other testing. I am not convince this is sepsis but await blood culture results , ?senior living trauma not sedated, add restraints for patient safety, just in case he wakes up CCT 35 minutes History Interval history: Patient was seen and examined. Follow-up on current diagnosis AMS, hypotensive, unresponsive. Overnight uneventful as no events directly reported to me. Imaging, nursing note, chart, labs and old chart reviewed. Police at bedside. Hospitalist Physical - Physical exam Narrative exam: Gen: critically ill, unresponsive, comatose state HEENT: pupils pinpoint and very sluggish Neck: supple, no adenopathy, no thyromegaly, no JVD CVS/Heart: RRR, normal S1S2, pulses present bilaterally Chest/Lungs: Symmetrical chest expansion, good air entry bilaterally GI/Abdomen: soft, ND, good bowel sounds, /Bladder: +barnes Extermity/Skin: no leg edema MSK: unresponsive, comatose state Neuro: unresponsive, comatose state Psych: unresponsive, comatose state - Constitutional Vitals: Temp Pulse Resp BP Pulse Ox 97.4 F L 84 22 68/34 98 04/04/19 08:00 04/04/19 07:45 04/03/19 22:00 04/04/19 07:45 04/04/19 09:00 General appearance: Present: severe distress Results - Labs CBC & Chem 7: 04/04/19 05:01 04/04/19 05:01 Labs: Laboratory Last Values WBC 4.9 K/mm3 (4.5-11.0) 04/04/19 05:01 RBC 4.27 M/mm3 (3.65-5.03) 04/04/19 05:01 Hgb 12.3 gm/dl (11.8-15.2) D 04/04/19 05:01 Hct 35.7 % (35.5-45.6) D 04/04/19 05:01 MCV 84 fl (84-94) 04/04/19 05:01 MCH 29 pg (28-32) 04/04/19 05:01 MCHC 35 % (32-34) H 04/04/19 05:01 RDW 14.6 % (13.2-15.2) 04/04/19 05:01 Plt Count 87 K/mm3 (140-440) L 04/04/19 05:01 Add Manual Diff Complete 04/04/19 05:01 Total Counted 100 04/04/19 05:01 Seg Neuts % (Manual) 6.0 % (40.0-70.0) L 04/04/19 05:01 Band Neutrophils % 76.0 % 04/04/19 05:01 Lymphocytes % (Manual) 11.0 % (13.4-35.0) L 04/04/19 05:01 Reactive Lymphs % (Man) 0 % 04/04/19 05:01 Monocytes % (Manual) 6.0 % (0.0-7.3) 04/04/19 05:01 Eosinophils % (Manual) 1.0 % (0.0-4.3) 04/04/19 05:01 Basophils % (Manual) 0 % (0.0-1.8) 04/04/19 05:01 Metamyelocytes % 0 % 04/04/19 05:01 Myelocytes % 0 % 04/04/19 05:01 Promyelocytes % 0 % 04/04/19 05:01 Blast Cells % 0 % 04/04/19 05:01 Nucleated RBC % Not Reportable 04/04/19 05:01 Seg Neutrophils # Man 0.3 K/mm3 (1.8-7.7) L 04/04/19 05:01 Band Neutrophils # 3.7 K/mm3 04/04/19 05:01 Lymphocytes # (Manual) 0.5 K/mm3 (1.2-5.4) L 04/04/19 05:01 Abs React Lymphs (Man) 0.0 K/mm3 04/04/19 05:01 Monocytes # (Manual) 0.3 K/mm3 (0.0-0.8) 04/04/19 05:01 Eosinophils # (Manual) 0.0 K/mm3 (0.0-0.4) 04/04/19 05:01 Basophils # (Manual) 0.0 K/mm3 (0.0-0.1) 04/04/19 05:01 Metamyelocytes # 0.0 K/mm3 04/04/19 05:01 Myelocytes # 0.0 K/mm3 04/04/19 05:01 Promyelocytes # 0.0 K/mm3 04/04/19 05:01 Blast Cells # 0.0 K/mm3 04/04/19 05:01 WBC Morphology Not Reportable 04/04/19 05:01 Hypersegmented Neuts Not Reportable 04/04/19 05:01 Hyposegmented Neuts Not Reportable 04/04/19 05:01 Hypogranular Neuts Not Reportable 04/04/19 05:01 Smudge Cells Not Reportable 04/04/19 05:01 Toxic Granulation Not Reportable 04/04/19 05:01 Toxic Vacuolation Not Reportable 04/04/19 05:01 Dohle Bodies Not Reportable 04/04/19 05:01 Pelger-Huet Anomaly Not Reportable 04/04/19 05:01 Shayy Rods Not Reportable 04/04/19 05:01 Platelet Estimate Consistent w auto 04/04/19 05:01 Clumped Platelets Not Reportable 04/04/19 05:01 Plt Clumps, EDTA Not Reportable 04/04/19 05:01 Large Platelets Not Reportable 04/04/19 05:01 Giant Platelets Not Reportable 04/04/19 05:01 Platelet Satelliting Not Reportable 04/04/19 05:01 Plt Morphology Comment Not Reportable 04/04/19 05:01 RBC Morphology Normal 04/04/19 05:01 Dimorphic RBCs Not Reportable 04/04/19 05:01 Polychromasia Not Reportable 04/04/19 05:01 Hypochromasia Not Reportable 04/04/19 05:01 Poikilocytosis Not Reportable 04/04/19 05:01 Anisocytosis Not Reportable 04/04/19 05:01 Microcytosis Not Reportable 04/04/19 05:01 Macrocytosis Not Reportable 04/04/19 05:01 Spherocytes Not Reportable 04/04/19 05:01 Pappenheimer Bodies Not Reportable 04/04/19 05:01 Sickle Cells Not Reportable 04/04/19 05:01 Target Cells Not Reportable 04/04/19 05:01 Tear Drop Cells Not Reportable 04/04/19 05:01 Ovalocytes Not Reportable 04/04/19 05:01 Helmet Cells Not Reportable 04/04/19 05:01 [place] Bodies Not Reportable 04/04/19 05:01 [place] Rings Not Reportable 04/04/19 05:01 [place] Cells Not Reportable 04/04/19 05:01 Bite Cells Not Reportable 04/04/19 05:01 Crenated Cell Not Reportable 04/04/19 05:01 Elliptocytes Not Reportable 04/04/19 05:01 Acanthocytes (Spur) Not Reportable 04/04/19 05:01 Rouleaux Not Reportable 04/04/19 05:01 Hemoglobin C Crystals Not Reportable 04/04/19 05:01 Schistocytes Not Reportable 04/04/19 05:01 Malaria parasites Not Reportable 04/04/19 05:01 Ric Bodies Not Reportable 04/04/19 05:01 Hem Pathologist Commnt No 04/04/19 05:01 ABG pH 7.289 pH Units (7.350-7.450) L 04/04/19 05:55 ABG pCO2 34.4 mm Hg 04/04/19 05:55 ABG pO2 246.4 mm Hg (80.0-90.0) H 04/04/19 05:55 ABG HCO3 16.1 mmol/L (20.0-26.0) L 04/04/19 05:55 ABG O2 Saturation 99.4 % (95.0-99.0) H 04/04/19 05:55 ABG O2 Content 15.9 (0.0-44) 04/04/19 05:55 ABG Base Excess -9.5 mmol/L (-2.0-3.0) L 04/04/19 05:55 ABG Hemoglobin 11.1 gm/dl (14.0-18.0) L 04/04/19 05:55 ABG Carboxyhemoglobin 0.8 % (0.0-5.0) 04/04/19 05:55 ABG Methemoglobin 0.6 % (0.0-1.5) 04/04/19 05:55 Oxyhemoglobin 97.9 % (95.0-99.0) 04/04/19 05:55 FiO2 80 % 04/04/19 05:55 Sodium 152 mmol/L (137-145) H 04/04/19 05:01 Potassium 3.9 mmol/L (3.6-5.0) 04/04/19 05:01 Chloride 120.5 mmol/L (98-107) H 04/04/19 05:01 Carbon Dioxide 13 mmol/L (22-30) L 04/04/19 05:01 Anion Gap 22 mmol/L 04/04/19 05:01 BUN 51 mg/dL (9-20) H 04/04/19 05:01 Creatinine 2.0 mg/dL (0.8-1.5) H 04/04/19 05:01 Estimated GFR 36 ml/min 04/04/19 05:01 BUN/Creatinine Ratio 26 % 04/04/19 05:01 Glucose 148 mg/dL (75-100) H 04/04/19 05:01 Lactic Acid 4.10 mmol/L (0.7-2.0) H* 04/04/19 07:18 Calcium 6.6 mg/dL (8.4-10.2) L D 04/04/19 05:01 Total Bilirubin 2.20 mg/dL (0.1-1.2) H 04/04/19 05:01 AST 22 units/L (5-40) 04/04/19 05:01 ALT 20 units/L (7-56) 04/04/19 05:01 Alkaline Phosphatase 70 units/L (35-129) 04/04/19 05:01 Total Creatine Kinase 43 units/L (55-170) L 04/03/19 11:22 Troponin T < 0.010 ng/mL (0.00-0.029) 04/03/19 11:22 Total Protein 4.8 g/dL (6.3-8.2) L D 04/04/19 05:01 Albumin 2.0 g/dL (3.9-5) L 04/04/19 05:01 Albumin/Globulin Ratio 0.7 % 04/04/19 05:01 TSH 1.100 mlU/mL (0.270-4.200) 04/03/19 16:55 Free T4 0.99 ng/dL (0.76-1.46) 04/03/19 16:55 Urine Color Maame (Yellow) 04/03/19 11:09 Urine Turbidity Cloudy (Clear) 04/03/19 11:09 Urine pH 5.0 (5.0-7.0) 04/03/19 11:09 Ur Specific [place] 1.027 (1.003-1.030) 04/03/19 11:09 Urine Protein 30 mg/dl mg/dL (Negative) 04/03/19 11:09 Urine Glucose (UA) Neg mg/dL (Negative) 04/03/19 11:09 Urine Ketones Neg mg/dL (Negative) 04/03/19 11:09 Urine Blood Neg (Negative) 04/03/19 11:09 Urine Nitrite Neg (Negative) 04/03/19 11:09 Ur Reducing Substances Not Reportable 04/03/19 11:09 Urine Bilirubin Mod (Negative) 04/03/19 11:09 Urine Ictotest Positive (Negative) 04/03/19 11:09 Urine Urobilinogen 4.0 mg/dL (<2.0) 04/03/19 11:09 Ur Leukocyte Esterase Neg (Negative) 04/03/19 11:09 Urine WBC (Auto) 15.0 /HPF (0.0-6.0) H 04/03/19 11:09 Urine RBC (Auto) 13.0 /HPF (0.0-6.0) 04/03/19 11:09 U Epithel Cells (Auto) 1.0 /HPF (0-13.0) 04/03/19 11:09 Urine Bacteria (Auto) 1+ /HPF (Negative) 04/03/19 11:09 Hyaline Casts 9 /LPF 04/03/19 11:09 Urine Mucus 3+ /HPF 04/03/19 11:09 Urine Opiates Screen Presumptive negative 04/03/19 11:09 Urine Methadone Screen Presumptive negative 04/03/19 11:09 Ur Barbiturates Screen Presumptive negative 04/03/19 11:09 Ur Phencyclidine Scrn Presumptive negative 04/03/19 11:09 Ur Amphetamines Screen Presumptive negative 04/03/19 11:09 U Benzodiazepines Scrn Presumptive negative 04/03/19 11:09 Urine Cocaine Screen Presumptive negative 04/03/19 11:09 U Marijuana (THC) Screen Presumptive negative 04/03/19 11:09 Drugs of Abuse Note Disclamer 04/03/19 11:09 Plasma/Serum Alcohol < 0.01 % (0-0.07) 04/03/19 11:22 Active Medications - Current Medications Current Medications: Generic Name Dose Route Start Last Admin Trade Name Freq PRN Reason Stop Dose Admin Albuterol 2.5 mg 04/03/19 16:37 Proventil IH Q3HRT PRN Shortness Of Breath Famotidine 20 mg 04/04/19 11:00 Pepcid IV QDAY DUSTY Hydrophilic Ointment 1 applic 04/03/19 22:51 Vaseline Lip Therapy TP Q2HR PRN Dry Lips Norepinephrine 4 mg in 250 mls @ 7.5 mls/hr 04/03/19 16:00 04/04/19 11:37 Levophed Drip 4 Mg/Ns 250 Ml IV 30 mcg/min TITR DUSTY 112.5 mls/hr Administration Protocol 2 MCG/MIN Vasopressin 20 unit/ Sodium 101 mls @ 9.09 mls/hr 04/03/19 23:00 04/04/19 07:54 Chloride IV 0.03 units/min TITR DUSTY 9.09 mls/hr Administration 0.03 UNITS/MIN Sodium Chloride 1,000 mls @ 999 mls/hr 04/04/19 01:47 Nacl 0.9% 1000 Ml IV 04/06/19 02:48 DIRECT DUSTY Protocol Sodium Bicarbonate 150 meq/ 1,150 mls @ 200 mls/hr 04/04/19 03:00 04/04/19 08:41 Dextrose IV 200 mls/hr DIRECT DUSTY Administration Vancomycin HCl 2,000 mg/ 540 mls @ 250 mls/hr 04/04/19 10:30 04/04/19 11:37 Sodium Chloride IV 04/04/19 12:39 250 mls/hr ONCE ONE Administration Ceftriaxone Sodium 2 gm in 100 mls @ 200 mls/hr 04/04/19 10:00 04/04/19 10:39 Rocephin/Ns 2 Gm/100 Ml IV 200 mls/hr Q12HR DUSTY Administration Protocol Phenylephrine HCl 100 mg/ 100 mls @ 3 mls/hr 04/04/19 10:30 Sodium Chloride IV TITR DUSTY Protocol 50 MCG/MIN Multi-Ingred Cream/Lotion/Oil/Oint 1 applic 04/03/19 22:51 Artificial Tears Ophth Oint OU Q4HR PRN Dry Eye(s) Sodium Chloride 10 ml 04/03/19 22:00 Sodium Chloride Flush Syringe 10 Ml IV BID DUSTY Sodium Chloride 10 ml 04/03/19 16:37 Sodium Chloride Flush Syringe 10 Ml IV PRN PRN LINE FLUSH Nutrition/Malnutrition Assess - Dietary Evaluation Nutrition/Malnutrition Findings: Nutrition Notes Start: 04/04/19 08:07 Freq: Status: Active Protocol: Document 04/04/19 08:07 POLA (Rec: 04/04/19 09:11 POLA [id number]) Co-Sign 04/04/19 08:07 LP Nutrition Notes Need for Assessment generated from: MD Order Initial or Follow up Assessment Current Diagnosis Acute Kidney Injury,CKD (stage V CKD),Hypertension Other Pertinent Diagnosis Septic shock, toxic encephalopathy, hypothermia Current Diet NPO Labs/Tests Na 152 BUN 51 Cr 2.0 Pertinent Medications Vasopression Levophed Height 5 ft 10 in Weight 147.418 kg [place] Body Weight (kg) 75.45 BMI 46.6 Weight Status Morbidly Obese Subjective/Other Information MD consult for intakes. Pt on vent. Per MD not feeding due to pressors. Burn Absent Trauma Absent GI Symptoms None Current % PO Negligible Minimum of two criteria No #1 Nutrition Diagnosis Inadequate oral intake Etiology Pt on vent As Evidenced by Signs and Symptoms NPO Is patient on ventilator? Yes Is Patient Ambulatory and/or Out of Bed No REE-([facility]-confined to bed) 2835.168 Kcal/Kg value to use for calculation 13 Approximate Energy Requirements Using 1916 kcal/Kg Calculation Used for Recommendations Kcal/kg Additional Notes Pro: <187 g (<2.5g/kg IBW) Fluid: 500ml + total output Nutrition Intervention Change Diet Order: Advance when medically feasible Goal #1 Advance diet when medically feasbile Anticipated Discharge Needs: Unable to determine at this time Follow-Up By: 04/06/19 Additional Comments FU for diet advancement
[2019-04-04] MEDS: PHENYLEPHRINE 100 MG in SODIUM CHLORIDE 0.9% 90 ML IV SCH (13:24)
--- NOTE | 2019-04-04 16:52 | XRay Report ---
CHEST 1 VIEW 4:12 PM INDICATION: possible aspiration. COMPARISON: Earlier the same day FINDINGS: Support devices: On the first image obtained at 4:11 PM, esophagogastric tube tip is in the distal es ophagus. On the second image, the tip is in the proximal esophagus. Endotracheal tube is somewhat hig h, approximately 6-7 cm above the deisi on the second image. Heart: Stable. Lungs/Pleura: Mild pleural parenchymal disease is noted in the left lower hemithorax. There is mild a telectasis in the right lung base. No pneumothorax. IMPRESSION: 1. On the second of the 2 images included with this exam, the esophagogastric tube tip is in the prox imal esophagus, this needs to be repositioned. 2. Endotracheal tube is somewhat high approximately 7 cm above the deisi. 3. Additional findings as above. Signer Name: Clay Randle MD Signed: 04/04/2019 4:47 PM Workstation Name: [id number] [employer]
[2019-04-05] MEDS: NORepinephrine/NS 4 MG-250 ML 4 MG/250 ML BAG IV SCH (00:42)
[2019-04-05] MEDS: NORepinephrine 8 MG in SODIUM CHLORIDE 0.9% 250ML 242 ML IV SCH ×6 (02:28→22:34)
[2019-04-05] MEDS: PHENYLEPHRINE 100 MG in SODIUM CHLORIDE 0.9% 90 ML IV SCH ×4 (02:54→21:45)
[2019-04-05] MEDS: SODIUM BICARBONATE 150 MEQ in DEXTROSE 5% IN WATER 1,000 ML IV SCH ×4 (03:06→22:35)
[2019-04-05 05:28] LABS: ABG Base Excess -6.2 mmol/L (-2.0-3.0); ABG HCO3 19.8 mmol/L (20.0-26.0); ABG Methemoglobin 0.4 % (0.0-1.5); ABG Oxygen Saturation 96.3 % (95.0-99.0); ABG PCO2 41.3 mm Hg; ABG PH 7.299 pH Units (7.350-7.450); ABG PO2 81.7 mm Hg (80.0-90.0)
[2019-04-05 05:36] LABS: Hematocrit 37.9 % (35.5-45.6); Hemoglobin 13.1 gm/dl (11.8-15.2); Mean Corpuscular HGB Conc 35 % (32-34); Mean Corpuscular Volume 83 fl (84-94); Red Blood Count 4.58 M/mm3 (3.65-5.03); Red Cell Distribution Width 15.4 % (13.2-15.2)
[2019-04-05] MEDS: VASOPRESSIN 20 UNIT in SODIUM CHLORIDE 0.9% 100 ML IV SCH ×2 (05:46→17:59)
[2019-04-05 05:52] LABS: Platelet Count 58 K/mm3 (140-440)
[2019-04-05 07:41] LABS: Calcium 5.9 mg/dL (8.4-10.2)
[2019-04-05] MEDS ORDERED: CALCIUM GLUCONATE 1000 MG/10 ML INJ IV ONE (08:01)
--- NOTE | 2019-04-05 08:06 | Progress Note ---
Assessment and Plan Assessment and plan: Patient is a 41 yo man from half-way in custody without known medical history who presented AMS/unresponsive. Patient is a prisoner and was found in his cell poorly responsive. Patient was transported to [facility] ED. He was given Narcan prior to arrival without positive response. Patient was minimally response to sternal rub so he was intubated. Patient was hypotensive and hypothermic prior to arrival. * UA +WBC/neg LE, UDS negative, Cr 2.7, pH 7.197/37.6/164.3/14.3 on fiO2 100% * pCXR IMPRESSION: 1. No acute findings. * CT abd/pelvis without contrast IMPRESSION: Suspect a gastroenteritis-type process. * CT head without contrast: No intracranial abnormality * Blood culture 1/2 bottle growing GP clusters Nausea and vomiting: treat with antiemetics, NGT to sunction Shock, UA culture negative x 24 hours, +1/2 blood cultures: continue Vasopre ssors, get Picc line, removal femoral line, treat empiric with IV vancomycin until blood culture finalizes. Hypothermic, workup in process, suspect related to a dying process: treat with kendra hugger as needed Acute hypoxic respiratory failure: continue MV support, CCM following Acute encephalopathy, unspecified, ?half-way trauma vs sepsis Hypocalcemia: replete and check CMP full code Disposition: continue inpatient care, too hemodynamically unstable for LP or any other testing, trying to wean vasopressor. I am not convinced this is sepsis but STILL await blood culture results, ?half-way trauma/injury not sedated, add restraints for patient safety, just in case he wakes up CCT 32 minutes History Interval history: Patient was seen and examined. Follow-up on current diagnosis AMS, hypotensive, unresponsive. Overnight uneventful as no events directly reported to me; however, am Nurse called regarding low calcium levels and replacement ordered. Imaging, nursing note, chart, labs and old chart reviewed. Police at bedside. Hospitalist Physical - Physical exam Narrative exam: Gen: critically ill, unresponsive, comatose state HEENT: pupils pinpoint and very sluggish Neck: supple, no adenopathy, no thyromegaly, no JVD CVS/Heart: RRR, normal S1S2, pulses present bilaterally Chest/Lungs: Symmetrical chest expansion, good air entry bilaterally GI/Abdomen: soft, ND, good bowel sounds, /Bladder: +barnes Extermity/Skin: no leg edema MSK: unresponsive, comatose state Neuro: unresponsive, comatose state Psych: unresponsive, comatose state - Constitutional Vitals: Temp Pulse Resp BP Pulse Ox 98.2 F 67 11 L 84/45 92 04/05/19 03:49 04/05/19 07:45 04/05/19 07:45 04/05/19 07:45 04/05/19 07:45 General appearance: Absent: severe distress Results - Labs CBC & Chem 7: 04/05/19 05:08 04/05/19 05:08 Labs: Laboratory Last Values WBC 9.3 K/mm3 (4.5-11.0) 04/05/19 05:08 RBC 4.58 M/mm3 (3.65-5.03) 04/05/19 05:08 Hgb 13.1 gm/dl (11.8-15.2) 04/05/19 05:08 Hct 37.9 % (35.5-45.6) 04/05/19 05:08 MCV 83 fl (84-94) L 04/05/19 05:08 MCH 29 pg (28-32) 04/05/19 05:08 MCHC 35 % (32-34) H 04/05/19 05:08 RDW 15.4 % (13.2-15.2) H 04/05/19 05:08 Plt Count 58 K/mm3 (140-440) L 04/05/19 05:08 Add Manual Diff Complete 04/04/19 05:01 Total Counted 100 04/04/19 05:01 Seg Neuts % (Manual) 6.0 % (40.0-70.0) L 04/04/19 05:01 Band Neutrophils % 76.0 % 04/04/19 05:01 Lymphocytes % (Manual) 11.0 % (13.4-35.0) L 04/04/19 05:01 Reactive Lymphs % (Man) 0 % 04/04/19 05:01 Monocytes % (Manual) 6.0 % (0.0-7.3) 04/04/19 05:01 Eosinophils % (Manual) 1.0 % (0.0-4.3) 04/04/19 05:01 Basophils % (Manual) 0 % (0.0-1.8) 04/04/19 05:01 Metamyelocytes % 0 % 04/04/19 05:01 Myelocytes % 0 % 04/04/19 05:01 Promyelocytes % 0 % 04/04/19 05:01 Blast Cells % 0 % 04/04/19 05:01 Nucleated RBC % Not Reportable 04/04/19 05:01 Seg Neutrophils # Man 0.3 K/mm3 (1.8-7.7) L 04/04/19 05:01 Band Neutrophils # 3.7 K/mm3 04/04/19 05:01 Lymphocytes # (Manual) 0.5 K/mm3 (1.2-5.4) L 04/04/19 05:01 Abs React Lymphs (Man) 0.0 K/mm3 04/04/19 05:01 Monocytes # (Manual) 0.3 K/mm3 (0.0-0.8) 04/04/19 05:01 Eosinophils # (Manual) 0.0 K/mm3 (0.0-0.4) 04/04/19 05:01 Basophils # (Manual) 0.0 K/mm3 (0.0-0.1) 04/04/19 05:01 Metamyelocytes # 0.0 K/mm3 04/04/19 05:01 Myelocytes # 0.0 K/mm3 04/04/19 05:01 Promyelocytes # 0.0 K/mm3 04/04/19 05:01 Blast Cells # 0.0 K/mm3 04/04/19 05:01 WBC Morphology Not Reportable 04/04/19 05:01 Hypersegmented Neuts Not Reportable 04/04/19 05:01 Hyposegmented Neuts Not Reportable 04/04/19 05:01 Hypogranular Neuts Not Reportable 04/04/19 05:01 Smudge Cells Not Reportable 04/04/19 05:01 Toxic Granulation Not Reportable 04/04/19 05:01 Toxic Vacuolation Not Reportable 04/04/19 05:01 Dohle Bodies Not Reportable 04/04/19 05:01 Pelger-Huet Anomaly Not Reportable 04/04/19 05:01 Shayy Rods Not Reportable 04/04/19 05:01 Platelet Estimate Consistent w auto 04/04/19 05:01 Clumped Platelets Not Reportable 04/04/19 05:01 Plt Clumps, EDTA Not Reportable 04/04/19 05:01 Large Platelets Not Reportable 04/04/19 05:01 Giant Platelets Not Reportable 04/04/19 05:01 Platelet Satelliting Not Reportable 04/04/19 05:01 Plt Morphology Comment Not Reportable 04/04/19 05:01 RBC Morphology Normal 04/04/19 05:01 Dimorphic RBCs Not Reportable 04/04/19 05:01 Polychromasia Not Reportable 04/04/19 05:01 Hypochromasia Not Reportable 04/04/19 05:01 Poikilocytosis Not Reportable 04/04/19 05:01 Anisocytosis Not Reportable 04/04/19 05:01 Microcytosis Not Reportable 04/04/19 05:01 Macrocytosis Not Reportable 04/04/19 05:01 Spherocytes Not Reportable 04/04/19 05:01 Pappenheimer Bodies Not Reportable 04/04/19 05:01 Sickle Cells Not Reportable 04/04/19 05:01 Target Cells Not Reportable 04/04/19 05:01 Tear Drop Cells Not Reportable 04/04/19 05:01 Ovalocytes Not Reportable 04/04/19 05:01 Helmet Cells Not Reportable 04/04/19 05:01 [place] Bodies Not Reportable 04/04/19 05:01 [place] Rings Not Reportable 04/04/19 05:01 [place] Cells Not Reportable 04/04/19 05:01 Bite Cells Not Reportable 04/04/19 05:01 Crenated Cell Not Reportable 04/04/19 05:01 Elliptocytes Not Reportable 04/04/19 05:01 Acanthocytes (Spur) Not Reportable 04/04/19 05:01 Rouleaux Not Reportable 04/04/19 05:01 Hemoglobin C Crystals Not Reportable 04/04/19 05:01 Schistocytes Not Reportable 04/04/19 05:01 Malaria parasites Not Reportable 04/04/19 05:01 Ric Bodies Not Reportable 04/04/19 05:01 Hem Pathologist Commnt No 04/04/19 05:01 ABG pH 7.299 pH Units (7.350-7.450) L 04/05/19 05:15 ABG pCO2 41.3 mm Hg 04/05/19 05:15 ABG pO2 81.7 mm Hg (80.0-90.0) 04/05/19 05:15 ABG HCO3 19.8 mmol/L (20.0-26.0) L 04/05/19 05:15 ABG O2 Saturation 96.3 % (95.0-99.0) 04/05/19 05:15 ABG O2 Content 15.5 (0.0-44) 04/05/19 05:15 ABG Base Excess -6.2 mmol/L (-2.0-3.0) L 04/05/19 05:15 ABG Hemoglobin 11.6 gm/dl (14.0-18.0) L 04/05/19 05:15 ABG Carboxyhemoglobin 1.3 % (0.0-5.0) 04/05/19 05:15 ABG Methemoglobin 0.4 % (0.0-1.5) 04/05/19 05:15 Oxyhemoglobin 94.6 % (95.0-99.0) L 04/05/19 05:15 FiO2 50 % 04/05/19 05:15 Sodium 154 mmol/L (137-145) H 04/05/19 05:08 Potassium 3.5 mmol/L (3.6-5.0) L 04/05/19 05:08 Chloride 116.8 mmol/L (98-107) H 04/05/19 05:08 Carbon Dioxide 18 mmol/L (22-30) L 04/05/19 05:08 Anion Gap 23 mmol/L 04/05/19 05:08 BUN 39 mg/dL (9-20) H 04/05/19 05:08 Creatinine 1.4 mg/dL (0.8-1.5) 04/05/19 05:08 Estimated GFR 55 ml/min 04/05/19 05:08 BUN/Creatinine Ratio 28 % 04/05/19 05:08 Glucose 140 mg/dL (75-100) H 04/05/19 05:08 POC Glucose 152 (70-105) H 04/05/19 03:01 Lactic Acid 4.10 mmol/L (0.7-2.0) H* 04/04/19 07:18 Calcium 5.9 mg/dL (8.4-10.2) L* 04/05/19 05:08 Total Bilirubin 2.20 mg/dL (0.1-1.2) H 04/04/19 05:01 AST 22 units/L (5-40) 04/04/19 05:01 ALT 20 units/L (7-56) 04/04/19 05:01 Alkaline Phosphatase 70 units/L (35-129) 04/04/19 05:01 Total Creatine Kinase 43 units/L (55-170) L 04/03/19 11:22 Troponin T < 0.010 ng/mL (0.00-0.029) 04/03/19 11: Total Protein 4.8 g/dL (6.3-8.2) L D 04/04/19 05:01 Albumin 2.0 g/dL (3.9-5) L 04/04/19 05:01 Albumin/Globulin Ratio 0.7 % 04/04/19 05:01 TSH 1.100 mlU/mL (0.270-4.200) 04/03/19 16:55 Free T4 0.99 ng/dL (0.76-1.46) 04/03/19 16:55 Urine Color Ma[place] (Yellow) 04/03/19 11:09 Urine Turbidity Cloudy (Clear) 04/03/19 11:09 Urine pH 5.0 (5.0-7.0) 04/03/19 11:09 Ur Specific [place] 1.027 (1.003-1.030) 04/03/19 11:09 Urine Protein 30 mg/dl mg/dL (Negative) 04/03/19 11:09 Urine Glucose (UA) Neg mg/dL (Negative) 04/03/19 11:09 Urine Ketones Neg mg/dL (Negative) 04/03/19 11:09 Urine Blood Neg (Negative) 04/03/19 11:09 Urine Nitrite Neg (Negative) 04/03/19 11:09 Ur Reducing Substances Not Reportable 04/03/19 11:09 Urine Bilirubin Mod (Negative) 04/03/19 11:09 Urine Ictotest Positive (Negative) 04/03/19 11:09 Urine Urobilinogen 4.0 mg/dL (<2.0) 04/03/19 11:09 Ur Leukocyte Esterase Neg (Negative) 04/03/19 11:09 Urine WBC (Auto) 15.0 /HPF (0.0-6.0) H 04/03/19 11:09 Urine RBC (Auto) 13.0 /HPF (0.0-6.0) 04/03/19 11:09 U Epithel Cells (Auto) 1.0 /HPF (0-13.0) 04/03/19 11:09 Urine Bacteria (Auto) 1+ /HPF (Negative) 04/03/19 11:09 Hyaline Casts 9 /LPF 04/03/19 11:09 Urine Mucus 3+ /HPF 04/03/19 11:09 Urine Opiates Screen Presumptive negative 04/03/19 11:09 Urine Methadone Screen Presumptive negative 04/03/19 11:09 Ur Barbiturates Screen Presumptive negative 04/03/19 11:09 Ur Phencyclidine Scrn Presumptive negative 04/03/19 11:09 Ur Amphetamines Screen Presumptive negative 04/03/19 11:09 U Benzodiazepines Scrn Presumptive negative 04/03/19 11:09 Urine Cocaine Screen Presumptive negative 04/03/19 11:09 U Marijuana (THC) Screen Presumptive negative 04/03/19 11:09 Drugs of Abuse Note Disclamer 04/03/19 11:09 Plasma/Serum Alcohol < 0.01 % (0-0.07) 04/03/19 11:22 Active Medications - Current Medications Current Medications: Generic Name Dose Route Start Last Admin Trade Name Freq PRN Reason Stop Dose Admin Albuterol 2.5 mg 04/03/19 16:37 Proventil IH Q3HRT PRN Shortness Of Breath Calcium Gluconate 1,000 mg 04/05/19 08:01 Calcium Gluconate IV 04/05/19 08:02 ONCE ONE Famotidine 20 mg 04/04/19 11:00 04/04/19 20:12 Pepcid IV Not Given QDAY DUSTY Hydrophilic Ointment 1 applic 04/03/19 22:51 Vaseline Lip Therapy TP Q2HR PRN Dry Lips Vasopressin 20 unit/ Sodium 101 mls @ 9.09 mls/hr 04/03/19 23:00 04/05/19 05:46 Chloride IV 0.03 units/min TITR DUSTY 9.09 mls/hr Administration 0.03 UNITS/MIN Sodium Chloride 1,000 mls @ 999 mls/hr 04/04/19 01:47 04/04/19 14:01 Nacl 0.9% 1000 Ml IV 04/06/19 02:48 999 mls/hr DIRECT DUSTY Administration Protocol Sodium Bicarbonate 150 meq/ 1,150 mls @ 200 mls/hr 04/04/19 03:00 04/05/19 03:06 Dextrose IV 200 mls/hr DIRECT DUSTY Administration Ceftriaxone Sodium 2 gm in 100 mls @ 200 mls/hr 04/04/19 10:00 04/04/19 22:35 Rocephin/Ns 2 Gm/100 Ml IV 200 mls/hr Q12HR DUSTY Administration Protocol Phenylephrine HCl 100 mg/ 100 mls @ 3 mls/hr 04/04/19 10:30 04/05/19 07:49 Sodium Chloride IV 240 mcg/min TITR DUSTY 14.4 mls/hr Titration Protocol 50 MCG/MIN Norepinephrine 8 mg/ Sodium 250 mls @ 3.75 mls/hr 04/05/19 02:00 04/05/19 06:04 Chloride IV 30 mcg/min TITR DUSTY 56.25 mls/hr Administration Protocol 2 MCG/MIN Multi-Ingred Cream/Lotion/Oil/Oint 1 applic 04/03/19 22:51 Artificial Tears Ophth Oint OU Q4HR PRN Dry Eye(s) Sodium Chloride 10 ml 04/03/19 22:00 04/04/19 22:36 Sodium Chloride Flush Syringe 10 Ml IV 10 ml BID DUSTY Administration Sodium Chloride 10 ml 04/03/19 16:37 Sodium Chloride Flush Syringe 10 Ml IV PRN PRN LINE FLUSH Nutrition/Malnutrition Assess - Dietary Evaluation Nutrition/Malnutrition Findings: Nutrition Notes Start: 04/04/19 08:07 Freq: Status: Active Protocol: Document 04/04/19 08:07 POLA (Rec: 04/04/19 09:11 POLA [id number]) Co-Sign 04/04/19 08:07 LP Nutrition Notes Need for Assessment generated from: MD Order Initial or Follow up Assessment Current Diagnosis Acute Kidney Injury,CKD (stage V CKD),Hypertension Other Pertinent Diagnosis Septic shock, toxic encephalopathy, hypothermia Current Diet NPO Labs/Tests Na 152 BUN 51 Cr 2.0 Pertinent Medications Vasopression Levophed Height 5 ft 10 in Weight 147.418 kg [place] Body Weight (kg) 75.45 BMI 46.6 Weight Status Morbidly Obese Subjective/Other Information MD consult for intakes. Pt on vent. Per MD not feeding due to pressors. Burn Absent Trauma Absent GI Symptoms None Current % PO Negligible Minimum of two criteria No #1 Nutrition Diagnosis Inadequate oral intake Etiology Pt on vent As Evidenced by Signs and Symptoms NPO Is patient on ventilator? Yes Is Patient Ambulatory and/or Out of Bed No REE-([facility]-confined to bed) 2835.168 Kcal/Kg value to use for calculation 13 Approximate Energy Requirements Using 1916 kcal/Kg Calculation Used for Recommendations Kcal/kg Additional Notes Pro: <187 g (<2.5g/kg IBW) Fluid: 500ml + total output Nutrition Intervention Change Diet Order: Advance when medically feasible Goal #1 Advance diet when medically feasbile Anticipated Discharge Needs: Unable to determine at this time Follow-Up By: 04/06/19 Additional Comments FU for diet advancement
--- NOTE | 2019-04-05 08:31 | XRay Report ---
CHEST 1 VIEW 0807 hours INDICATION / CLINICAL INFORMATION: follow up respiratory failure. COMPARISON: 04/04/2019 FINDINGS: SUPPORT DEVICES: Stable positioning of the endotracheal tube which terminates approximately 6 cm supe rior to the deisi. The nasogastric tube has been advanced and terminates in the fundus of the stomac h. Right arm PICC remains in good position. HEART / MEDIASTINUM: No significant abnormality. LUNGS / PLEURA: Stable left lower lung infiltrate and small left pleural effusion. The right lung rem ains generally clear. No pneumothorax. ADDITIONAL FINDINGS: No significant additional findings. IMPRESSION: The nasogastric tube has been advanced as described, otherwise, no significant interval change. Signer Name: Hiro Jerez Jr, MD Signed: 04/05/2019 8:27 AM Workstation Name: [id number]
[2019-04-05] MEDS ORDERED: CALCIUM GLUCONATE 1,000 MG in SODIUM CHLORIDE 0.9% 100 ML IV ONE (09:00)
[2019-04-05] MEDS: cefTRIAXone/NS 2 GM/100 ML 2 GM/100 ML BAG IV SCH ×2 (09:19→22:37)
[2019-04-05] MEDS: FAMOTIDINE 20 MG/2 ML INJ IV SCH ×2 (09:19→22:36)
[2019-04-05] MEDS ORDERED: LACTATED RINGERS 1,000 ML IV ONE ×3 (09:57)
--- NOTE | 2019-04-05 10:52 | Progress Note ---
Assessment and Plan 44 y/o male admitted with altered mental state, unresponsive now on vent, hypotensive for unknown etiology. 1. Worsening clinical status. 2. Will give more IVF's. Responded to fluids last night. Per nursing put out over 1k. Will give more lactated ringers now 3. Spoke with pharmacy, will increase rocephin to 2 grams IV q12. Will also give a one time dose of vanc. Blood cultures with GPC in clusters. Will also give an additional dose of vanc, add difluc and start on stress dose steroids as well. 4. Wean Vasopressors for MAPs greater than 65 5. Overall prognosis is guarded to poor. Long discussion at bedside with guard and I spoke with Skilled Nursing Doctor as well. Patient's prognosis is very poor at this time and could have cardiac arrest at any moment today. I have asked the guard to reach out to his superiors about contacting the patient's family as they need to be aware that he could from this and that despite him being a full code, we may not able to resuscitate him if he does have cardiac arrest. [facility] has called the skilled nursing physician again today and left a message. CCT 31 minutes. Subjective Date of service: 04/05/19 Interval history: Remains unresponsive. Worsening clinical status as patient is now maxed on 3 vasopressors and continues on bicarb drip. HR only in the 60's. Guard at bedside. Objective Vital Signs - 12hr 04/04/19 04/04/19 04/04/19 22:49 23:00 23:15 Temperature Pulse Rate 78 78 75 Respiratory 15 14 22 Rate Blood Pressure 99/73 95/49 94/41 O2 Sat by Pulse 100 100 100 Oximetry 04/04/19 04/04/19 04/04/19 23:30 23:45 23:52 Temperature 97.5 F L Pulse Rate 77 77 Respiratory 23 22 Rate Blood Pressure 95/44 92/44 O2 Sat by Pulse 100 100 Oximetry 04/05/19 04/05/19 04/05/19 00:00 00:15 00:30 Temperature Pulse Rate 68 76 70 Respiratory 22 22 20 Rate Blood Pressure 94/46 95/50 95/42 O2 Sat by Pulse 100 100 98 Oximetry 04/05/19 04/05/19 04/05/19 00:45 00:55 01:00 Temperature Pulse Rate 71 72 77 Respiratory 23 23 Rate Blood Pressure 91/43 91/43 96/47 O2 Sat by Pulse 98 100 100 Oximetry 04/05/19 04/05/19 04/05/19 01:15 01:30 01:45 Temperature Pulse Rate 71 74 69 Respiratory 22 22 22 Rate Blood Pressure 91/48 95/47 90/43 O2 Sat by Pulse 97 96 97 Oximetry 04/05/19 04/05/19 04/05/19 02:00 02:15 02:30 Temperature Pulse Rate 69 72 74 Respiratory 22 22 22 Rate Blood Pressure 91/41 92/42 91/41 O2 Sat by Pulse 97 98 98 Oximetry 04/05/19 04/05/19 04/05/19 02:45 03:00 03:15 Temperature Pulse Rate 70 64 67 Respiratory 22 22 22 Rate Blood Pressure 81/37 88/42 94/44 O2 Sat by Pulse 97 97 98 Oximetry 04/05/19 04/05/19 04/05/19 03:30 03:45 03:49 Temperature 98.2 F Pulse Rate 69 68 Respiratory 22 22 Rate Blood Pressure 92/46 101/44 O2 Sat by Pulse 99 100 Oximetry 04/05/19 04/05/19 04/05/19 04:00 04:15 04:30 Temperature Pulse Rate 67 72 68 Respiratory 22 17 22 Rate Blood Pressure 102/44 100/50 98/45 O2 Sat by Pulse 98 100 99 Oximetry 04/05/19 04/05/19 04/05/19 04:39 04:45 05:00 Temperature Pulse Rate 67 67 66 Respiratory 22 22 Rate Blood Pressure 98/45 96/47 100/46 O2 Sat by Pulse 98 98 98 Oximetry 04/05/19 04/05/19 04/05/19 05:15 05:30 05:45 Temperature Pulse Rate 68 70 71 Respiratory 22 22 22 Rate Blood Pressure 98/43 96/48 89/45 O2 Sat by Pulse 97 97 94 Oximetry 04/05/19 04/05/19 04/05/19 06:00 06:15 06:30 Temperature Pulse Rate 68 68 67 Respiratory 22 23 22 Rate Blood Pressure 95/41 94/38 96/43 O2 Sat by Pulse 94 93 95 Oximetry 04/05/19 04/05/19 04/05/19 06:45 07:00 07:15 Temperature Pulse Rate 67 67 66 Respiratory 22 16 16 Rate Blood Pressure 89/45 93/38 98/42 O2 Sat by Pulse 95 92 93 Oximetry 04/05/19 04/05/19 04/05/19 07:30 07:45 08:00 Temperature 97.9 F Pulse Rate 69 67 68 Respiratory 14 11 L 14 Rate Blood Pressure 102/30 84/45 81/39 O2 Sat by Pulse 92 92 93 Oximetry 04/05/19 04/05/19 04/05/19 08:11 08:15 08:31 Temperature Pulse Rate 69 70 67 Respiratory 22 22 Rate Blood Pressure 81/42 81/42 75/43 O2 Sat by Pulse 97 100 94 Oximetry Constitutional: no acute distress, comatose Eyes: non-icteric ENT: other (orally intubated not on sedation) Effort: normal Ascultation: Bilateral: clear Percussion: Bilateral: not dull Gastrointestinal: normoactive bowel sounds, soft CBC and BMP: 04/05/19 05:08 04/05/19 05:08 ABG, PT/INR, D-dimer: ABG ABG pH 7.299 pH Units (7.350-7.450) L 04/05/19 05:15 ABG pCO2 41.3 mm Hg 04/05/19 05:15 ABG pO2 81.7 mm Hg (80.0-90.0) 04/05/19 05:15 ABG O2 Saturation 96.3 % (95.0-99.0) 04/05/19 05:15 Abnormal lab findings: Abnormal Labs 04/03/19 04/03/19 04/03/19 11:09 11:22 11:22 RBC 5.90 H Hgb 16.8 H Hct 48.0 H MCV 81 L MCHC 35 H RDW Plt Count 117 L Seg Neuts % (Manual) 7.0 L Lymphocytes % (Manual) Seg Neutrophils # Man 0.6 L Lymphocytes # (Manual) 1.1 L ABG pH ABG pO2 ABG HCO3 ABG O2 Saturation ABG Base Excess ABG Hemoglobin Oxyhemoglobin Sodium 146 H Potassium Chloride Carbon Dioxide 15 L BUN 53 H Creatinine 2.7 H Glucose 179 H POC Glucose Lactic Acid Calcium Total Bilirubin 4.00 H Total Creatine Kinase 43 L Total Protein Albumin 3.7 L Urine WBC (Auto) 15.0 H 04/03/19 04/03/19 04/03/19 11:22 15:31 16:28 RBC Hgb Hct MCV MCHC RDW Plt Count Seg Neuts % (Manual) Lymphocytes % (Manual) Seg Neutrophils # Man Lymphocytes # (Manual) ABG pH ABG pO2 ABG HCO3 ABG O2 Saturation ABG Base Excess ABG Hemoglobin Oxyhemoglobin Sodium Potassium Chloride Carbon Dioxide BUN Creatinine Glucose POC Glucose Lactic Acid 8.00 H* 4.50 H* 4.80 H* Calcium Total Bilirubin Total Creatine Kinase Total Protein Albumin Urine WBC (Auto) 04/03/19 04/03/19 04/03/19 17:50 19:01 20:57 RBC Hgb Hct MCV MCHC RDW Plt Count Seg Neuts % (Manual) Lymphocytes % (Manual) Seg Neutrophils # Man Lymphocytes # (Manual) ABG pH 7.347 L ABG pO2 97.6 H ABG HCO3 13.9 L ABG O2 Saturation ABG Base Excess -10.3 L ABG Hemoglobin 11.4 L Oxyhemoglobin Sodium Potassium Chloride Carbon Dioxide BUN Creatinine Glucose POC Glucose Lactic Acid 4.40 H* 4.00 H* Calcium Total Bilirubin Total Creatine Kinase Total Protein Albumin Urine WBC (Auto) 04/03/19 04/04/19 04/04/19 23:55 00:29 05:01 RBC Hgb Hct MCV MCHC 35 H RDW Plt Count 87 L Seg Neuts % (Manual) 6.0 L Lymphocytes % (Manual) 11.0 L Seg Neutrophils # Man 0.3 L Lymphocytes # (Manual) 0.5 L ABG pH 7.197 L* ABG pO2 164.3 H ABG HCO3 14.3 L ABG O2 Saturation ABG Base Excess -13.0 L ABG Hemoglobin 11.6 L Oxyhemoglobin Sodium Potassium Chloride Carbon Dioxide BUN Creatinine Glucose POC Glucose Lactic Acid 4.20 H* Calcium Total Bilirubin Total Creatine Kinase Total Protein Albumin Urine WBC (Auto) 04/04/19 04/04/19 04/04/19 05:01 05:01 05:55 RBC Hgb Hct MCV MCHC RDW Plt Count Seg Neuts % (Manual) Lymphocytes % (Manual) Seg Neutrophils # Man Lymphocytes # (Manual) ABG pH 7.289 L ABG pO2 246.4 H ABG HCO3 16.1 L ABG O2 Saturation 99.4 H ABG Base Excess -9.5 L ABG Hemoglobin 11.1 L Oxyhemoglobin Sodium 152 H Potassium Chloride 120.5 H Carbon Dioxide 13 L BUN 51 H Creatinine 2.0 H Glucose 148 H POC Glucose Lactic Acid 4.00 H* Calcium 6.6 L D Total Bilirubin 2.20 H Total Creatine Kinase Total Protein 4.8 L D Albumin 2.0 L Urine WBC (Auto) 04/04/19 04/05/19 04/05/19 07:18 03:01 05:08 RBC Hgb Hct MCV 83 L MCHC 35 H RDW 15.4 H Plt Count 58 L Seg Neuts % (Manual) Lymphocytes % (Manual) Seg Neutrophils # Man Lymphocytes # (Manual) ABG pH ABG pO2 ABG HCO3 ABG O2 Saturation ABG Base Excess ABG Hemoglobin Oxyhemoglobin Sodium Potassium Chloride Carbon Dioxide BUN Creatinine Glucose POC Glucose 152 H Lactic Acid 4.10 H* Calcium Total Bilirubin Total Creatine Kinase Total Protein Albumin Urine WBC (Auto) 04/05/19 04/05/19 05:08 05:15 RBC Hgb Hct MCV MCHC RDW Plt Count Seg Neuts % (Manual) Lymphocytes % (Manual) Seg Neutrophils # Man Lymphocytes # (Manual) ABG pH 7.299 L ABG pO2 ABG HCO3 19.8 L ABG O2 Saturation ABG Base Excess -6.2 L ABG Hemoglobin 11.6 L Oxyhemoglobin 94.6 L Sodium 154 H Potassium 3.5 L Chloride 116.8 H Carbon Dioxide 18 L BUN 39 H Creatinine Glucose 140 H POC Glucose Lactic Acid Calcium 5.9 L* Total Bilirubin Total Creatine Kinase Total Protein Albumin Urine WBC (Auto)
[2019-04-05] MEDS: HYDROCORTISONE SOD SUCC 100 MG/2 ML VIAL IV SCH ×3 (11:00→22:35)
[2019-04-05] MEDS ORDERED: SODIUM BICARB 8.4% 50 MEQ/50 ML SYRINGE IV ONE (11:00)
[2019-04-05] MEDS ORDERED: FLUCONAZOLE 200 MG 200 MG/100 ML BAG IV SCH (11:00)
[2019-04-05] MEDS ORDERED: VANCOMYCIN 2,000 MG in SODIUM CHLORIDE 0.9% 500 ML 500 ML IV ONE (11:00)
[2019-04-05] MEDS: metroNIDAZOLE/NS 500 MG/100 ML 500 MG/100 ML BAG IV SCH ×2 (14:45→22:05)
--- NOTE | 2019-04-05 16:45 | Consultation ---
History of Present Illness - Reason for Consult Consult date: 04/05/19 - History of Present Illness 44 yo M PMHx morbid obesity, tobacco dependence, incarceration admitted with altered mental status. Patient was brought to the hospital in a comatose state, and as such the history is obtained from the chart. He was able to protect his airway and had a positive gag reflex at the time. He was found to be in shock and is now currently on 3 pressors. patient has been unable to provide any sympt oms, and the rest of his history is unclear. Now in the ICU and intubated on 3 pressors. Afebrile since admission (with low temperatures), with a normal white count. Currently on high-dose ceftriaxone, fluconazole, metronidzole, and has received several doses of vancomycin. Imaging personally reviewed: CXR: LL infiltrate CTAP: probably gastroenteritis. Past History Past Medical History: other (unable to obtain) Past Surgical History: Other (unable to obtain) Social history: other (Currently incarcerated) Family history: other (unable to obtain) Medications and Allergies Allergies Allergy/AdvReac Type Severity Reaction Status Date / Time diphenhydramine Allergy Unknown Verified 02/06/19 16:32 [From Benadryl] lithium Allergy Unknown Verified 02/06/19 16:33 Sulfa (Sulfonamide Allergy Nausea Verified 02/06/19 16:32 Antibiotics) Active Meds: Active Medications Albuterol (Proventil) 2.5 mg IH Q3HRT PRN PRN Reason: Shortness Of Breath Famotidine (Pepcid) 20 mg IV BID DUSTY Last Admin: 04/05/19 09:19 Dose: 20 mg Documented by: Hydrocortisone Sodium Succinate (Solu-Cortef) 100 mg IV Q8HR DUSTY Hydrophilic Ointment (Vaseline Lip Therapy) 1 applic TP Q2HR PRN PRN Reason: Dry Lips Vasopressin 20 unit/ Sodium (Chloride) 101 mls @ 9.09 mls/hr IV TITR DUSTY Last Admin: 04/05/19 05:46 Dose: 0.03 units/min, 9.09 mls/hr Documented by: Sodium Bicarbonate 150 meq/ (Dextrose) 1,150 mls @ 200 mls/hr IV DIRECT DUSTY Last Admin: 04/05/19 13:56 Dose: 200 mls/hr Documented by: Ceftriaxone Sodium (Rocephin/Ns 2 Gm/100 Ml) 2 gm in 100 mls @ 200 mls/hr IV Q12HR DUSTY; Protocol Last Admin: 04/05/19 09:19 Dose: 200 mls/hr Documented by: Phenylephrine HCl 100 mg/ (Sodium Chloride) 100 mls @ 3 mls/hr IV TITR DUSTY; Protocol Last Titration: 04/05/19 15:51 Dose: 390 mcg/min, 23.4 mls/hr Documented by: Norepinephrine 8 mg/ Sodium (Chloride) 250 mls @ 3.75 mls/hr IV TITR DUSTY; Protocol Last Admin: 04/05/19 13:56 Dose: 30 mcg/min, 56.25 mls/hr Documented by: Metronidazole (Flagyl 500 Mg/100 Ml) 500 mg in 100 mls @ 100 mls/hr IV Q8HR DUSTY Fluconazole (Diflucan) 200 mg in 100 mls @ 100 mls/hr IV Q24HR DUSTY Last Admin: 04/05/19 12:52 Dose: 100 mls/hr Documented by: Multi-Ingred Cream/Lotion/Oil/Oint (Artificial Tears Ophth Oint) 1 applic OU Q4HR PRN PRN Reason: Dry Eye(s) Sodium Chloride (Sodium Chloride Flush Syringe 10 Ml) 10 ml IV BID DUSTY Last Admin: 04/05/19 09:20 Dose: 10 ml Documented by: Sodium Chloride (Sodium Chloride Flush Syringe 10 Ml) 10 ml IV PRN PRN PRN Reason: LINE FLUSH Review of Systems ROS unobtainable: due to endotracheal tube Physical Examination - Physical Exam Narrative exam: Physical Exam: Constitutional: Intubated, sedated Head, Ears, Nose: Normocephalic, atraumatic. External ears, nose normal Eyes: Conjunctivae/corneas clear. No icterus. No ptosis. Neck: intubated Oral: Intubated Cardiovascular: S1, S2 normal. Respiratory: Good air entry, clear to auscultation bilaterally GI: Soft, non-tender; bowel sounds normal. No peritoneal signs. Musculoskeletal: No pedal edema, no cyanosis. Skin: No rash or abscess Hem/Lymphatic: No palpable cervical or supraclavicular nodes. No lymphangitis Psych: Sedated Neurological: Sedated - Constitutional Vitals: Vital Signs Temp Pulse Resp BP Pulse Ox 97.3 F L 79 21 103/48 89 04/05/19 12:00 04/05/19 16:15 04/05/19 16:15 04/05/19 16:15 04/05/19 16:15 Temperature -Last 24 Hours Temperature 97.3 F Temperature 97.9 F Temperature 98.2 F Temperature 97.5 F Temperature 96.7 F Results - Labs CBC & Chem 7: 04/05/19 05:08 04/05/19 05:08 Labs: Abnormal lab results 04/05/19 04/05/19 04/05/19 Range/Units 03:01 05:08 05:08 MCV 83 L (84-94) fl MCHC 35 H (32-34) % RDW 15.4 H (13.2-15.2) % Plt Count 58 L (140-440) K/mm3 ABG pH (7.350-7.450) pH Units ABG HCO3 (20.0-26.0) mmol/L ABG Base Excess (-2.0-3.0) mmol/L ABG Hemoglobin (14.0-18.0) gm/dl Oxyhemoglobin (95.0-99.0) % Sodium 154 H (137-145) mmol/L Potassium 3.5 L (3.6-5.0) mmol/L Chloride 116.8 H (98-107) mmol/L Carbon Dioxide 18 L (22-30) mmol/L BUN 39 H (9-20) mg/dL Glucose 140 H (75-100) mg/dL POC Glucose 152 H (70-105) Calcium 5.9 L* (8.4-10.2) mg/dL 04/05/19 Range/Units 05:15 MCV (84-94) fl MCHC (32-34) % RDW (13.2-15.2) % Plt Count (140-440) K/mm3 ABG pH 7.299 L (7.350-7.450) pH Units ABG HCO3 19.8 L (20.0-26.0) mmol/L ABG Base Excess -6.2 L (-2.0-3.0) mmol/L ABG Hemoglobin 11.6 L (14.0-18.0) gm/dl Oxyhemoglobin 94.6 L (95.0-99.0) % Sodium (137-145) mmol/L Potassium (3.6-5.0) mmol/L Chloride (98-107) mmol/L Carbon Dioxide (22-30) mmol/L BUN (9-20) mg/dL Glucose (75-100) mg/dL POC Glucose (70-105) Calcium (8.4-10.2) mg/dL Assessment and Plan Cultures: 04/03/2019 blood cultures: CoNS 1, GNR 04/03/2019 urine culture: no growth 04/03/2019 sputum culture: no growth A&P: 44 yo M PMHx morbid obesity, tobacco dependence admitted with septic shock. #Septic shock: present with hypotension requiring 3 pressors, low temperatures, altered mental status. Likely source pneumonia vs bacteremia from gastroneteritis #GNR bacteremia: likely source gastroenteritis, less likely from pneumonia. Follow-up ID and WILLIS. Would escalate to cefepime pending finalization of cultures. #Coagulase-negative staph bacteremia: Likely contaminant as not present on other culture. #Gastroenteritis: typically viral in nature, however increases permeability of gut wall increasing risk of bacteremia. #Pneumonia: Continue antibiotics. #Acute hypoxic respiratory failure: Intubated #Altered mental status: Likely multifactorial from toxic metabolic encephalopathy. Recommendations: -No further vancomycin doses given likely contamination -Can continue high-dose ceftriaxone given morbid obesity. Dosing can be 3 g every 24 hours instead if preferred. -Continue metronidazole -Continue fluconazole for now -Follow-up ID and WILLIS of GNR in blood culture Poor prognosis Thank you for the consult, will continue to follow MD [facility] ([facility]) M: [phone] O: [phone] F: [phone]
[2019-04-06] MEDS: NORepinephrine 8 MG in SODIUM CHLORIDE 0.9% 250ML 242 ML IV SCH ×2 (02:12→05:47)
[2019-04-06] MEDS: PHENYLEPHRINE 100 MG in SODIUM CHLORIDE 0.9% 90 ML IV SCH ×2 (02:45→07:06)
[2019-04-06 04:59] LABS: ABG Base Excess -3.3 mmol/L (-2.0-3.0); ABG HCO3 21.7 mmol/L (20.0-26.0); ABG Methemoglobin 0.5 % (0.0-1.5); ABG Oxygen Saturation 94.7 % (95.0-99.0); ABG PCO2 38.8 mm Hg; ABG PH 7.365 pH Units (7.350-7.450); ABG PO2 69.2 mm Hg (80.0-90.0)
[2019-04-06] MEDS: VASOPRESSIN 20 UNIT in SODIUM CHLORIDE 0.9% 100 ML IV SCH (05:10)
[2019-04-06] MEDS: metroNIDAZOLE/NS 500 MG/100 ML 500 MG/100 ML BAG IV SCH (05:49)
[2019-04-06] MEDS: SODIUM BICARBONATE 150 MEQ in DEXTROSE 5% IN WATER 1,000 ML IV SCH (05:52)
[2019-04-06 06:43] LABS: Hematocrit 33.7 % (35.5-45.6); Hemoglobin 11.6 gm/dl (11.8-15.2); Mean Corpuscular HGB Conc 34 % (32-34); Mean Corpuscular Volume 82 fl (84-94); Red Cell Distribution Width 15.2 % (13.2-15.2)
[2019-04-06 06:44] LABS: Platelet Count 32 K/mm3 (140-440)
[2019-04-06 07:10] LABS: Albumin 1.6 g/dL (3.9-5)
[2019-04-06 07:12] LABS: Calcium 5.6 mg/dL (8.4-10.2)
--- NOTE | 2019-04-06 08:37 | XRay Report ---
CHEST 1 VIEW INDICATION: follow up respiratory failure. COMPARISON: 04/05/2019 FINDINGS: Support devices: Stable satisfactory device positioning. Endotracheal tube is satisfactory. Heart: Normal size and shifted more to the left. Lungs/Pleura: Near complete opacification of the left hemithorax with shift of the heart to the left. Silhouetting of the cardiac borders and the left hemidiaphragm. No pneumothorax. The right lung is r elatively clear. Additional findings: None. IMPRESSION: 1. Worsened left lower lobe atelectasis and near complete opacification of the left hemithorax due to atelectasis and pleural effusion. Signer Name: Wilmer Moon MD Signed: 04/06/2019 8:33 AM Workstation Name: [id number]
[2019-04-06] MEDS ORDERED: ACETAMINOPHEN 650 MG RECT SUPP PR ONE (09:00)
[2019-04-06] MEDS ORDERED: MEROPENEM/NS 1 GRAM/100 ML 1 GRAM/100 ML BAG IV SCH (09:00)
[2019-04-06] MEDS ORDERED: ONDANSETRON 4 MG/2 ML INJ IV PRN (09:13)
[2019-04-06] MEDS ORDERED: MORPHINE 2 MG/1 ML INJ IV PRN (09:13)
[2019-04-06] MEDS ORDERED: GLYCOPYRROLATE 0.4 MG/2 ML INJ IV PRN (09:13)
[2019-04-06] MEDS ORDERED: LORazepam 2 MG/ML VIAL IV PRN (09:13)
--- NOTE | 2019-04-06 09:31 | Event Note ---
Date: 04/06/19 Patient released from group home, father notified and came to see patient yesterday. He spoke with IMS and patient was made DNR. The father then elected to withdraw care but no one was available to sign the paper work. I came this am and spoke with the father and Aunt (Patients father's sister) and they again expressed that the patient would not want to be like this and he already knows the wishes. The father asked me about who contacts and the olive grower and spoke with the charge and let him know that we do. Withdraw order set initiated and will withdraw today. CCT 31 minutes.
[2019-04-06] MEDS: MORPHINE 2 MG/1 ML INJ IV PRN ×2 (09:34→10:12)
[2019-04-06] MEDS ORDERED: CALCIUM GLUCONATE 2,000 MG in SODIUM CHLORIDE 0.9% 100 ML IV ONE ×2 (10:00→10:42)
[2019-04-06 12:49] VITALS: BP 52/28
--- NOTE | 2019-04-06 15:25 | Progress Note ---
Assessment and Plan Cultures: 04/03/2019 blood cultures: CoNS 1/4, Acinetobacter baumannii 04/03/2019 urine culture: no growth 04/03/2019 sputum culture: MSSA A&P: 44 yo M PMHx morbid obesity, tobacco dependence admitted with septic shock. #Septic shock: present with hypotension requiring 3 pressors, low temperatures, altered mental status. Likely source pneumonia vs bacteremia from gastroneteritis #GNR bacteremia: likely source gastroenteritis, less likely from pneumonia. Follow-up ID and WILLIS. Would escalate to cefepime pending finalization of cultur es. #Coagulase-negative staph bacteremia: Likely contaminant as not present on other culture. #Gastroenteritis: typically viral in nature, however increases permeability of gut wall increasing risk of bacteremia. #Pneumonia: Continue antibiotics. #Acute hypoxic respiratory failure: Intubated #Altered mental status: Likely multifactorial from toxic metabolic encephalopathy. Recommendations: - antibiotics stopped as care withdrawn Thank you for the consult, will sign off. Aquilino Wen MD [facility] ([facility]) M: [phone] O: [phone] F: [phone] Subjective Date of service: 04/06/19 Interval history: Care withdrawn. Objective - Exam Narrative Exam: Physical Exam: Constitutional: Intubated, sedated Head, Ears, Nose: Normocephalic, atraumatic. External ears, nose normal Neck: intubated Oral: Intubated Cardiovascular: S1, S2 normal. Respiratory: Good air entry, clear to auscultation bilaterally GI: Soft, non-tender; bowel sounds normal. No peritoneal signs. Musculoskeletal: No pedal edema, no cyanosis. Skin: No rash or abscess Hem/Lymphatic: No palpable cervical or supraclavicular nodes. No lymphangitis Psych: Sedated Neurological: Sedated - Constitutional Vitals: Vital Signs Temp Pulse Resp BP Pulse Ox 101.0 F H 70 7 L 52/28 62 L 04/06/19 08:00 04/06/19 10:31 04/06/19 11:01 04/06/19 11:01 04/06/19 10:15 Temperature -Last 24 Hours Temperature 101.0 F Temperature 99.4 F Temperature 99.1 F Temperature 98.4 F - Labs CBC & Chem 7: 04/06/19 06:00 04/06/19 06:00 Labs: Abnormal lab results 04/03/19 04/06/19 04/06/19 Range/Units 11:22 04:40 06:00 RBC 5.90 H (3.65-5.03) M/mm3 Hgb 16.8 H 11.6 L (11.8-15.2) gm/dl Hct 48.0 H 33.7 L (35.5-45.6) % MCV 81 L 82 L (84-94) fl MCHC 35 H (32-34) % Plt Count 117 L 32 L (140-440) K/mm3 Seg Neuts % (Manual) 7.0 L (40.0-70.0) % Seg Neutrophils # Man 0.6 L (1.8-7.7) K/mm3 Lymphocytes # (Manual) 1.1 L (1.2-5.4) K/mm3 ABG pO2 69.2 L (80.0-90.0) mm Hg ABG O2 Saturation 94.7 L (95.0-99.0) % ABG Base Excess -3.3 L (-2.0-3.0) mmol/L ABG Hemoglobin 12.1 L (14.0-18.0) gm/dl Oxyhemoglobin 93.2 L (95.0-99.0) % Sodium (137-145) mmol/L Chloride (98-107) mmol/L Carbon Dioxide (22-30) mmol/L BUN (9-20) mg/dL Glucose (75-100) mg/dL Calcium (8.4-10.2) mg/dL Total Bilirubin (0.1-1.2) mg/dL AST (5-40) units/L Total Protein (6.3-8.2) g/dL Albumin (3.9-5) g/dL 04/06/19 Range/Units 06:00 RBC (3.65-5.03) M/mm3 Hgb (11.8-15.2) gm/dl Hct (35.5-45.6) % MCV (84-94) fl MCHC (32-34) % Plt Count (140-440) K/mm3 Seg Neuts % (Manual) (40.0-70.0) % Seg Neutrophils # Man (1.8-7.7) K/mm3 Lymphocytes # (Manual) (1.2-5.4) K/mm3 ABG pO2 (80.0-90.0) mm Hg ABG O2 Saturation (95.0-99.0) % ABG Base Excess (-2.0-3.0) mmol/L ABG Hemoglobin (14.0-18.0) gm/dl Oxyhemoglobin (95.0-99.0) % Sodium 153 H (137-145) mmol/L Chloride 108.7 H (98-107) mmol/L Carbon Dioxide 20 L (22-30) mmol/L BUN 43 H (9-20) mg/dL Glucose 174 H (75-100) mg/dL Calcium 5.6 L* (8.4-10.2) mg/dL Total Bilirubin 1.40 H (0.1-1.2) mg/dL AST 43 H (5-40) units/L Total Protein 4.4 L (6.3-8.2) g/dL Albumin 1.6 L (3.9-5) g/dL
[2019-04-11 11:57] LABS: HIV-1 Antibody Differentiation SEE SCANNED RESULT; HIV-2 Antibody Differentiation SEE SCANNED RESULT
== END 2019-04-06 15:24 | DRG 871 ==
LOC: EDSEX → ED 10:57 → CC1 16:37
PROVIDERS: ADMIT Internal Medicine; ATTEND Internal Medicine
PROC: 0BH17EZ Insertion of Endotracheal Airway into Trachea, Via Natural or Artificial Opening (ICD-10-PCS; principal; 2019-04-03)
PROC: 4A033R1 Measurement of Arterial Saturation, Peripheral, Percutaneous Approach (ICD-10-PCS; 2019-04-03)
PROC: 5A1945Z Respiratory Ventilation, 24-96 Consecutive Hours (ICD-10-PCS; 2019-04-03)
PROC: 06HY33Z Insertion of Infusion Device into Lower Vein, Percutaneous Approach (ICD-10-PCS; 2019-04-03)
PROC: B54BZZA Ultrasonography of Right Lower Extremity Veins, Guidance (ICD-10-PCS; 2019-04-03)
PROC: 02HV33Z Insertion of Infusion Device into Superior Vena Cava, Percutaneous Approach (ICD-10-PCS; 2019-04-04)
DX: A41.59 Other Gram-negative sepsis (principal); G92 Toxic encephalopathy; R65.21 Severe sepsis with septic shock; J96.01 Acute respiratory failure with hypoxia; J18.9 Pneumonia, unspecified organism; N17.9 Acute kidney failure, unspecified; E87.2 Acidosis; A08.39 Other viral enteritis; E87.0 Hyperosmolality and hypernatremia; E66.2 Morbid (severe) obesity with alveolar hypoventilation; Z68.41 Body mass index [BMI] 40.0-44.9, adult; R68.0 Hypothermia, not associated with low environmental temperature; E83.51 Hypocalcemia; Z88.8 Allergy status to other drugs, medicaments and biological substances; Z71.3 Dietary counseling and surveillance; Z88.2 Allergy status to sulfonamides; Z66 Do not resuscitate
CPT/HCPCS: 36415; 36600; 70450; 71045; 74176; 80048; 80053; 80307; 80320; 81001; 82140; 82550; 82803; 82962; 84439; 84443; 84484; 85007; 85025; 85027; 86689; 87040; 87070; 87076; 87086; 87186; 87205; 93005; 93010; 94002; 94003; G0378; G0480; J0330; J0610; J0696; J1450; J1720; J2060; J2185; J2270; J2370; J3370; J7030; J7040; J7050; J7070; J7120